=== PATIENT | female | born 1990 | race Caucasian/White ===

== ENCOUNTER 2018-05-03 19:38 | Emergency (ER) | payer BC ==
[2018-05-03 19:50] VITALS: RESP 18
--- NOTE | 2018-05-03 20:33 | ED ---
General Adult HPI - General Chief complaint: Upper Respiratory Infection Stated complaint: SOB/cough Time Seen by Provider: 05/03/18 19:51 Source: patient Mode of arrival: ambulatory Limitations: no limitations - History of Present Illness Initial comments: 27-year-old female presents to the emergency determine for a chief complaint of cough times one week. Patient states the cough is productive and she is coughing up mucus. Patient states she has also been coughing up dime sized amounts of blood 1-2 times per day. Patient has been taking ALLERGY medications for this. Patient also complains of a sore throat. Patient denies nasal congestion. Patient denies fever or chills at home. Patient denies a history of asthma but states she does smoke. Patient has no other complaints at this time including shortness of breath, chest pain, abdominal pain, nausea or vomiting, headache, or visual changes. - Related Data Home Medications Medication Instructions Recorded Confirmed Acetaminophen [Tylenol Extra 1,000 mg PO Q6H PRN 05/03/18 05/03/18 Strength] Cetirizine HCl [Zyrtec] 10 mg PO DAILY 05/03/18 05/03/18 Previous Rx's Medication Instructions Recorded Albuterol Inhaler [Ventolin Hfa 1 - 2 puff INHALATION Q6HR PRN #1 05/03/18 Inhaler] inhaler guaiFENesin [Mucinex] 600 mg PO Q12H #20 tab.er.12h 05/03/18 predniSONE 50 mg PO DAILY #5 tablet 05/03/18 Allergies Allergy/AdvReac Type Severity Reaction Status Date / Time No Known Allergies Allergy Verified 05/03/18 20:23 Review of Systems ROS Statement: Those systems with pertinent positive or pertinent negative responses have been documented in the HPI. ROS Other: All systems not noted in ROS Statement are negative. Past Medical History Past Medical History: No Reported History History of Any Multi-Drug Resistant Organisms: None Reported Past Surgical History: No Surgical Hx Reported Past Psychological History: Depression Smoking Status: Current every day smoker Past Alcohol Use History: Rare Past Drug Use History: None Reported General Exam Limitations: no limitations General appearance: alert, in no apparent distress Head exam: Present: atraumatic, normocephalic, normal inspection Eye exam: Present: normal appearance, PERRL, EOMI. Absent: scleral icterus, conjunctival injection, periorbital swelling ENT exam: Present: normal exam, normal oropharynx (erythematous. uvula midline. no tonsillar exudated. no signs of peritonsillar abscess.), mucous membranes moist, TM's normal bilaterally, normal external ear exam Neck exam: Present: normal inspection, full ROM. Absent: tenderness, meningismus, lymphadenopathy Respiratory exam: Present: normal lung sounds bilaterally. Absent: respiratory distress, wheezes, rales, rhonchi, stridor Cardiovascular Exam: Present: regular rate, normal rhythm, normal heart sounds. Absent: systolic murmur, diastolic murmur, rubs, gallop, clicks Course Vital Signs 05/03/18 19:45 Temperature 98.4 F Pulse Rate 73 Respiratory 18 Rate Blood Pressure 103/76 O2 Sat by Pulse 99 Oximetry Medical Decision Making - Medical Decision Making 27-year-old female presents to the emergency determine for chief complaint of cough times one week. Patient states she is coughing up mucus and then sized amount of blood once or twice a day. Patient denies history of asthma. Patient is a smoker. Vitals within normal limits in the emergency department. Patient is afebrile at 98.4F. Pulse ox 99% on room air. Lungs are clear to auscultation bilaterally. No wheezing noted. Chest x-ray shows no acute process. Pleural spaces are negative. Lungs are clear. Patient likely has a bronchitis. She will be given an inhaler as well as steroids. She will also take Mucinex. She will follow up with primary care in 1-2 days. She'll return to the emergency Department if she has any worsening symptoms. - Lab Data Lab Results 05/03/18 Range/Units 20:15 Group A Strep Rapid Negative (Negative) Disposition Clinical Impression: Upper respiratory infection Disposition: HOME SELF-CARE Condition: Good Instructions: Upper Respiratory Infection (ED) Additional Instructions: Please take steroids, inhaler, and mucinex as directed. Try to refrain from smoking. Please follow-up with primary care in 1-2 days. Return to the emergency department if you have any worsening symptoms. Prescriptions: Albuterol Inhaler [Ventolin Hfa Inhaler] 1 - 2 puff INHALATION Q6HR PRN #1 inhaler PRN Reason: Shortness Of Breath guaiFENesin [Mucinex] 600 mg PO Q12H #20 tab.er.12h predniSONE 50 mg PO DAILY #5 tablet Is patient prescribed a controlled substance at d/c from ED?: No Referrals: Brennen Kimball MD [STAFF PHYSICIAN] - 1-2 days Time of Disposition: 21:50
[2018-05-03] MEDS ORDERED: diphenhydrAMINE 50 MG CAP PO STA (21:06)
--- NOTE | 2018-05-03 21:26 | XR ---
EXAMINATION: XR chest 2V DATE AND TIME: 05/03/2018 8:34 PM ORDERING PROVIDER: Servando Medley CLINICAL INDICATION: Pain TECHNIQUE: PA and lateral COMPARISON: None. DESCRIPTION: The lungs are clear. The pleural spaces are negative. The cardiac silhouette is not enlarged. The mediastinal and pleural silhouettes are unremarkable. The skeletal structures are intact without focal findings. The soft tissues are unremarkable. IMPRESSION: NO ACUTE PROCESS.
[2018-05-03 22:08] VITALS: BP 109/55; PULSE 66; TEMP 98
== END 2018-05-03 22:06 | disposition home or self-care (01) ==
LOC: EC 19:38
DX: J06.9 Acute upper respiratory infection, unspecified (principal); F17.200 Nicotine dependence, unspecified, uncomplicated; Z79.899 Other long term (current) drug therapy
CPT/HCPCS: 71046; 87081; 87430; 99283

== ENCOUNTER 2018-05-27 15:55 | Emergency (ER) | payer BC ==
[2018-05-27] MEDS ORDERED: methylPREDNISolone SOD SUCCI 125 MG/2 ML VIAL IV STA (16:25)
[2018-05-27] MEDS ORDERED: ALBUTEROL NEBULIZED 2.5 MG/3 ML INHALATION STA (16:25)
[2018-05-27] MEDS ORDERED: FAMOTIDINE 20 MG/2 ML VIAL IV STA (16:25)
--- NOTE | 2018-05-27 16:34 | ED ---
Skin/Abscess/FB HPI - General Chief complaint: Skin/Abscess/Foreign Body Stated complaint: Bee Sting/SOB Time Seen by Provider: 05/27/18 16:22 Source: patient, RN notes reviewed Mode of arrival: ambulatory Limitations: no limitations - History of Present Illness Initial comments: This is a 27-year-old female presents emergency Department chief complaint of bee sting, shortness of breath. Patient states she was stung by a bee around 11 :30 AM today. Patient states that she started feeling slightly tingly and felt some chest tightness around 3:30. Patient states that she did take Benadryl at that time but still feels slightly off to start her usual self. Patient denies any throat pain, throat swelling or difficulty swallowing. Patient states that she is trying to find her inhaler to see if that would help but she could not find it. She denies any rashes. She states that she's never been stung by a bee in the past. - Related Data Home Medications Medication Instructions Recorded Confirmed Acetaminophen [Tylenol Extra 1,000 mg PO Q6H PRN 05/03/18 05/03/18 Strength] Cetirizine HCl [Zyrtec] 10 mg PO DAILY 05/03/18 05/03/18 Previous Rx's Medication Instructions Recorded Albuterol Inhaler [Ventolin Hfa 1 - 2 puff INHALATION Q6HR PRN #1 05/03/18 Inhaler] inhaler guaiFENesin [Mucinex] 600 mg PO Q12H #20 tab.er.12h 05/03/18 predniSONE 50 mg PO DAILY #5 tablet 05/03/18 Allergies Allergy/AdvReac Type Severity Reaction Status Date / Time bee venom protein (honey bee) Allergy Dyspnea Verified 05/27/18 16:15 Review of Systems ROS Statement: Those systems with pertinent positive or pertinent negative responses have been documented in the HPI. ROS Other: All systems not noted in ROS Statement are negative. Past Medical History Past Medical History: Asthma History of Any Multi-Drug Resistant Organisms: None Reported Past Surgical History: No Surgical Hx Reported Past Psychological History: Depression Smoking Status: Current every day smoker Past Alcohol Use History: Rare Past Drug Use History: None Reported General Exam Limitations: no limitations General appearance: alert, in no apparent distress Head exam: Present: atraumatic, normocephalic, normal inspection Eye exam: Present: normal appearance, PERRL, EOMI. Absent: scleral icterus, conjunctival injection, periorbital swelling ENT exam: Present: normal exam, normal oropharynx, mucous membranes moist, TM's normal bilaterally, normal external ear exam Neck exam: Present: normal inspection. Absent: tenderness, meningismus, lymphadenopathy Respiratory exam: Present: normal lung sounds bilaterally. Absent: respiratory distress, wheezes, rales, rhonchi, stridor Cardiovascular Exam: Present: regular rate, normal rhythm, normal heart sounds. Absent: systolic murmur, diastolic murmur, rubs, gallop, clicks Skin exam: Present: warm, dry, intact, normal color. Absent: rash Course Vital Signs 05/27/18 05/27/18 05/27/18 16:13 16:57 17:04 Temperature 98.3 F Pulse Rate 66 68 Respiratory 19 18 Rate Blood Pressure 105/70 O2 Sat by Pulse 100 Oximetry 05/27/18 17:17 Temperature Pulse Rate 72 Respiratory Rate Blood Pressure O2 Sat by Pulse Oximetry - Reevaluation(s) Reevaluation #1: 05/27/18 17:37 Patient was reevaluated states that she is currently symptom-free. She has been here almost 2 hours and has had no worsening symptoms. Patient will be discharged advised to continue on Benadryl. Disposition Clinical Impression: Allergic reaction to bee sting Disposition: HOME SELF-CARE Condition: Stable Instructions: Insect Bite or Sting (ED) Additional Instructions: Please return to the Emergency Department if symptoms worsen or any other concerns. Is patient prescribed a controlled substance at d/c from ED?: No Referrals: None,Stated [Primary Care Provider] - 1-2 days Time of Disposition: 17:38
[2018-05-27 18:04] VITALS: BP 115/70; PULSE 97; RESP 16; TEMP 97.6
== END 2018-05-27 17:55 | disposition home or self-care (01) ==
LOC: EC 15:55
DX: T63.441A Toxic effect of venom of bees, accidental (unintentional), initial encounter (principal); F17.200 Nicotine dependence, unspecified, uncomplicated; Z79.899 Other long term (current) drug therapy; Z91.030 Bee allergy status
CPT/HCPCS: 94640; 99284; 96374; 96375; J2930

== ENCOUNTER 2018-08-08 20:29 | Emergency (ER) | payer BC ==
[2018-08-08 20:44] VITALS: BP 129/59; PULSE 87; RESP 18; TEMP 99
--- NOTE | 2018-08-08 21:37 | ED ---
Abdominal Pain HPI - General Chief Complaint: Abdominal Pain Stated Complaint: Female Time Seen by Provider: 08/08/18 20:46 Source: patient, RN notes reviewed Mode of arrival: ambulatory Limitations: no limitations - History of Present Illness Initial Comments: This is a 27-year-old female who presents to the emergency department with chief complaint of low abdominal and back cramping. Patient states that she has been having cramping for approximately 3 weeks now. She states she is concerned because she had an IUD placed 1 year ago and cannot feel the strings. She states that she had normal periods when she first had the IUD but has not had a period for a while now. She reports painful sexual intercourse for the first time. She denies any fevers or chills, nausea or vomiting, diarrhea. She states she has no medical issues and takes no oral medications. She denies dysuria or hematuria but reports increased urinary frequency. - Related Data Home Medications Medication Instructions Recorded Confirmed Albuterol Inhaler [Ventolin Hfa 1 - 2 puff INHALATION RT-Q6H PRN 08/08/18 Inhaler] Allergies Allergy/AdvReac Type Severity Reaction Status Date / Time bee venom protein (honey bee) Allergy Dyspnea Verified 08/08/18 21:32 Review of Systems ROS Statement: Those systems with pertinent positive or pertinent negative responses have been documented in the HPI. ROS Other: All systems not noted in ROS Statement are negative. Past Medical History Past Medical History: Asthma History of Any Multi-Drug Resistant Organisms: None Reported Past Surgical History: No Surgical Hx Reported Past Psychological History: Depression Smoking Status: Current some day smoker Past Alcohol Use History: None Reported Past Drug Use History: None Reported General Exam - General Exam Comments Initial Comments: General: Awake and alert, well-developed; in no apparent distress. Does not appear acutely ill. HEENT: Head atraumatic, normocephalic. Pupils are equal, round and reactive to light. Extraocular movements intact. Oropharynx moist without erythema or exudate. Neck: Supple. Normal ROM. Cardiovascular: Regular rate and rhythm. No murmurs, rubs or gallops. Chest symmetrical. Respiratory: Lungs clear to auscultation bilaterally. No wheezes, rales or rhonchi. Normal respiratory effort with no use of accessory muscles. Abdomen: Soft, thin, non-tender, non-distended. No rigidity, rebound or guarding. Normal bowel sounds in all 4 quadrants. No CVA tenderness bilaterally. Musculoskeletal: Normal ROM, no tenderness bilateral upper and lower extremities. Skin: [place], warm and dry without rashes or lesions. Neurological: Alert and oriented x3. CN II-XII grossly intact. Speech is fluent and answers are appropriate. No focal neuro deficits. Psychiatric: Normal mood and affect. No overt signs of depression or anxiety noted. Limitations: no limitations Course Vital Signs 08/08/18 20:39 Temperature 99.0 F Pulse Rate 87 Respiratory 18 Rate Blood Pressure 129/59 O2 Sat by Pulse 98 Oximetry Medical Decision Making - Medical Decision Making This is a 27-year-old female presents to the emergency department with chief complaint of lower abdominal and low back cramping 3 weeks. Patient states she is concerned that her IUD is out of place. On physical examination, patient appears well. CBC, CMP and UA revealed no significant abnormalities. Transvaginal ultrasound reveals that the IUD is in good position. No evidence of ovarian torsion. Case was discussed with attending physician, Dr. Coreas. Patient will be discharged home at this time. Recommended following up with her primary care provider. She is in agreement with plan and voices understanding. All questions were answered. - Lab Data Result diagrams: 08/08/18 21:20 08/08/18 21:20 Lab Results 08/08/18 08/08/18 08/08/18 Range/Units 21:20 21:20 21:20 WBC 4.6 (3.8-10.6) k/uL RBC 4.33 (3.80-5.40) m/uL Hgb 13.8 (11.4-16.0) gm/dL Hct 39.1 (34.0-46.0) % MCV 90.3 (80.0-100.0) fL MCH 31.9 (25.0-35.0) pg MCHC 35.3 (31.0-37.0) g/dL RDW 12.2 (11.5-15.5) % Plt Count 61 L (150-450) k/uL Neutrophils % (Manual) 23 % Band Neutrophils % 1 % Lymphocytes % (Manual) 70 % Monocytes % (Manual) 3 % Eosinophils % (Manual) 3 % Neutrophils # (Manual) 1.10 L (1.3-7.7) k/uL Lymphocytes # (Manual) 3.22 (1.0-4.8) k/uL Monocytes # (Manual) 0.14 (0-1.0) k/uL Eosinophils # (Manual) 0.14 (0-0.7) k/uL Nucleated RBCs 0 (0-0) /100 WBC Manual Slide Review Performed Sodium 141 (137-145) mmol/L Potassium 4.0 (3.5-5.1) mmol/L Chloride 104 (98-107) mmol/L Carbon Dioxide 27 (22-30) mmol/L Anion Gap 10 mmol/L BUN 6 L (7-17) mg/dL Creatinine 0.56 (0.52-1.04) mg/dL Est GFR (CKD-EPI)AfAm >90 (>60 ml/min/1.73 sqM) Est GFR (CKD-EPI)NonAf >90 (>60 ml/min/1.73 sqM) Glucose 87 (74-99) mg/dL Calcium 10.3 H (8.4-10.2) mg/dL Total Bilirubin 0.3 (0.2-1.3) mg/dL AST 21 (14-36) U/L ALT 20 (9-52) U/L Alkaline Phosphatase 50 (38-126) U/L Total Protein 8.5 H (6.3-8.2) g/dL Albumin 5.2 H (3.5-5.0) g/dL Amylase 72 (30-110) U/L Lipase 66 (23-300) U/L Urine Color Urine Appearance (Clear) Urine pH (5.0-8.0) Ur Specific [place] (1.001-1.035) Urine Protein (Negative) Urine Glucose (UA) (Negative) Urine Ketones (Negative) Urine Blood (Negative) Urine Nitrite (Negative) Urine Bilirubin (Negative) Urine Urobilinogen (<2.0) mg/dL Ur Leukocyte Esterase (Negative) Urine RBC (0-5) /hpf Urine WBC (0-5) /hpf Ur Squamous Epith Cells (0-4) /hpf Urine HCG, Qual Not Detected (Not Detectd) 08/08/18 Range/Units 21:20 WBC (3.8-10.6) k/uL RBC (3.80-5.40) m/uL Hgb (11.4-16.0) gm/dL Hct (34.0-46.0) % MCV (80.0-100.0) fL MCH (25.0-35.0) pg MCHC (31.0-37.0) g/dL RDW (11.5-15.5) % Plt Count (150-450) k/uL Neutrophils % (Manual) % Band Neutrophils % % Lymphocytes % (Manual) % Monocytes % (Manual) % Eosinophils % (Manual) % Neutrophils # (Manual) (1.3-7.7) k/uL Lymphocytes # (Manual) (1.0-4.8) k/uL Monocytes # (Manual) (0-1.0) k/uL Eosinophils # (Manual) (0-0.7) k/uL Nucleated RBCs (0-0) /100 WBC Manual Slide Review Sodium (137-145) mmol/L Potassium (3.5-5.1) mmol/L Chloride (98-107) mmol/L Carbon Dioxide (22-30) mmol/L Anion Gap mmol/L BUN (7-17) mg/dL Creatinine (0.52-1.04) mg/dL Est GFR (CKD-EPI)AfAm (>60 ml/min/1.73 sqM) Est GFR (CKD-EPI)NonAf (>60 ml/min/1.73 sqM) Glucose (74-99) mg/dL Calcium (8.4-10.2) mg/dL Total Bilirubin (0.2-1.3) mg/dL AST (14-36) U/L ALT (9-52) U/L Alkaline Phosphatase (38-126) U/L Total Protein (6.3-8.2) g/dL Albumin (3.5-5.0) g/dL Amylase (30-110) U/L Lipase (23-300) U/L Urine Color Colorless Urine Appearance Clear (Clear) Urine pH 6.5 (5.0-8.0) Ur Specific [place] 1.003 (1.001-1.035) Urine Protein Negative (Negative) Urine Glucose (UA) Negative (Negative) Urine Ketones Negative (Negative) Urine Blood Negative (Negative) Urine Nitrite Negative (Negative) Urine Bilirubin Negative (Negative) Urine Urobilinogen <2.0 (<2.0) mg/dL Ur Leukocyte Esterase Trace H (Negative) Urine RBC <1 (0-5) /hpf Urine WBC 3 (0-5) /hpf Ur Squamous Epith Cells 3 (0-4) /hpf Urine HCG, Qual (Not Detectd) - Radiology Data Radiology results: report reviewed Ultrasound impression: IUD appears in good position. No evidence of ovarian torsion. Disposition Clinical Impression: Abdominal pain Disposition: HOME SELF-CARE Condition: Good Instructions: Abdominal Pain (ED) Additional Instructions: Please follow up with primary care provider within 1-2 days. Return to emergency department if symptoms should worsen or any concerns arise. Is patient prescribed a controlled substance at d/c from ED?: No Referrals: None,Stated [Primary Care Provider] - 1-2 days Amari Mcclure MD [STAFF PHYSICIAN] - 1-2 days Time of Disposition: 23:20
[2018-08-08 21:38] LABS: Appearance,Urine Clear (Clear); Bilirubin,Urine Negative (Negative); Blood,Urine Negative (Negative); Color,Urine Colorless; Glucose,Urine (UA) Negative (Negative); Ketones,Urine Negative (Negative); Leukocyte Esterase,Urine Trace (Negative); Nitrite,Urine Negative (Negative); PH, Urine 6.5 (5.0-8.0); Protein,Urine Negative (Negative); RBC,Urine <1 /hpf (0-5); Specific Gravity,Urine 1.003 (1.001-1.035); Squamous Epithelial Cell,Urine 3 /hpf (0-4); Urobilinogen,Urine <2.0 mg/dL (<2.0); WBC,Urine 3 /hpf (0-5)
[2018-08-08 21:50] LABS: ALT 20 U/L (9-52); AST 21 U/L (14-36); Albumin 5.2 g/dL (3.5-5.0); Alkaline Phosphatase 50 U/L (38-126); Amylase 72 U/L (30-110); Anion Gap 10 mmol/L; Blood Urea Nitrogen 6 mg/dL (7-17); Calcium 10.3 mg/dL (8.4-10.2); Carbon Dioxide 27 mmol/L (22-30); Chloride 104 mmol/L (98-107); Glucose 87 mg/dL (74-99); Lipase 66 U/L (23-300); Sodium 141 mmol/L (137-145); Total Bilirubin 0.3 mg/dL (0.2-1.3); Total Protein 8.5 g/dL (6.3-8.2)
[2018-08-08 22:06] LABS: HCT 39.1 % (34.0-46.0); HGB 13.8 gm/dL (11.4-16.0); MCH 31.9 pg (25.0-35.0); MCHC 35.3 g/dL (31.0-37.0); MCV 90.3 fL (80.0-100.0); RBC 4.33 m/uL (3.80-5.40); RDW 12.2 % (11.5-15.5); WBC 4.6 k/uL (3.8-10.6)
[2018-08-08 22:16] LABS: Platelet Count 61 k/uL (150-450)
[2018-08-08 22:19] LABS: Band Neutrophils % 1 %; Eosinophils # (M) 0.14 k/uL (0-0.7); Lymphocytes # (M) 3.22 k/uL (1.0-4.8); Monocytes # (M) 0.14 k/uL (0-1.0); Neutrophils % (M) 23 %; Nucleated Red Blood Cells 0 /100 WBC (0-0); Total Cells Counted 100
--- NOTE | 2018-08-08 22:53 | US ---
EXAMINATION TYPE: US transvaginal DATE OF EXAM: 08/08/2018 COMPARISON: NONE CLINICAL HISTORY: pelvic cramping. Cramping check IUD placement TECHNIQUE: Transvaginal (TV). EXAM MEASUREMENTS: Uterus: 6.9 x 3.3 x 4.6 cm Endometrial Stripe: Not well visualized due to shadowing from IUD. Right Ovary: 2.9 x 2.1 x 2.3 cm Left Ovary: 2.4 x 1.8 x 2.0 cm 1. Uterus: Anteverted wnl 2. Endometrium: IUD appears within endometrial lining. 3. Right Ovary: wnl 4. Left Ovary: wnl Spectral, color and waveform doppler imaging shows good arterial and venous flow within the ovaries ; there is no evidence for ovarian torsion. 5. Bilateral Adnexa: wnl 6. Posterior cul-de-sac: wnl IMPRESSION: IUD appears in good position. No evidence of ovarian torsion.
== END 2018-08-08 23:36 | disposition home or self-care (01) ==
LOC: EC 20:29
DX: R10.30 Lower abdominal pain, unspecified (principal); M54.5 Low back pain; R35.0 Frequency of micturition; J45.909 Unspecified asthma, uncomplicated; F17.200 Nicotine dependence, unspecified, uncomplicated; Z91.018 Allergy to other foods; Z97.5 Presence of (intrauterine) contraceptive device
CPT/HCPCS: 36415; 76830; 80053; 81001; 81025; 82150; 83690; 85025; 93975; 99284

== ENCOUNTER 2019-08-27 22:09 | Emergency (ER) | payer BC ==
[2019-08-27] MEDS ORDERED: CEPHALEXIN 500 MG CAP PO STA (22:35)
[2019-08-27] MEDS ORDERED: CEPHALEXIN 500MG STARTER PACK 4 CAP BTL PO STA (22:35)
[2019-08-27] MEDS ORDERED: SULFAMETHOX-TMP 800-160MG 1 EACH TAB PO STA (22:35)
[2019-08-27] MEDS ORDERED: SULFAMETH-TMP DS STARTER PACK 2 TAB BTL PO STA (22:35)
--- NOTE | 2019-08-27 23:16 | XR ---
EXAMINATION TYPE: XR elbow complete RT DATE OF EXAM: 08/27/2019 COMPARISON: NONE HISTORY: Elbow infection TECHNIQUE: 3 views FINDINGS: There is some soft tissue swelling on the posterior aspect of the elbow. I see no fracture nor dislocation. There is no sign of joint effusion. Joint spaces are normal. IMPRESSION: Soft tissue swelling. No fracture.
--- NOTE | 2019-08-27 23:32 | ED ---
General Adult HPI - General Chief complaint: Skin/Abscess/Foreign Body Stated complaint: arm infection Time Seen by Provider: 08/27/19 22:23 Source: patient, RN notes reviewed, old records reviewed Mode of arrival: ambulatory Limitations: no limitations - History of Present Illness Initial comments: 29-year-old female patient with no pertinent past history presents ED chief complaint of redness to right elbow. Patient reports that she noticed that earlier this morning. Patient reports that has gotten slightly more red throughout the day. Patient reports that it causes a small amount discomfort. However she did present to ER after bowling 3 games. Denies any other medical history. Denies other complaints. Systemic: Pt denies fatigue, fever/chills, rash. Pt denies weakness, night sweats, weight loss. Neuro: Pt denies headache, visual disturbances, syncope or pre-syncope. HEENT: Pt denies ocular discharge or irritation, otalgia, rhinorrhea, pharyngitis or notable lymphadenopathy. Cardiopulmonary: Pt denies chest pain, SOB, heart palpitations, dyspnea on exertion. Abdominal/GI: Pt denies abdominal pain, n/v/d. : Pt denies dysuria, burning w/ urination, frequency/urgency. Denies new onset urinary or bowel incontinence. MSK: Pt denies myalgia, loss of strength or function in extremities. Neuro: Pt denies new onset weakness, paresthesias. - Related Data Home Medications Medication Instructions Recorded Confirmed Albuterol Inhaler [Ventolin Hfa 1 - 2 puff INHALATION RT-Q6H PRN 08/08/18 08/08/18 Inhaler] Previous Rx's Medication Instructions Recorded Cephalexin [Keflex] 500 mg PO Q6HR 10 Days #40 cap 08/27/19 Sulfamethox-Tmp 800-160Mg [Bactrim 1 tab PO Q12HR #20 tab 08/27/19 DS 800-160 mg] Allergies Allergy/AdvReac Type Severity Reaction Status Date / Time bee venom protein (honey bee) Allergy Dyspnea Verified 08/27/19 22:21 Review of Systems ROS Statement: Those systems with pertinent positive or pertinent negative responses have been documented in the HPI. ROS Other: All systems not noted in ROS Statement are negative. Past Medical History Past Medical History: Asthma History of Any Multi-Drug Resistant Organisms: None Reported Past Surgical History: No Surgical Hx Reported Past Psychological History: Depression Smoking Status: Current some day smoker Past Alcohol Use History: None Reported Past Drug Use History: None Reported General Exam - General Exam Comments Initial Comments: Constitutional: NAD, AOX3, Pt has pleasant affect. HEENT: NC/AT, trachea midline, neck supple, no lymphadenopathy. Posterior pharynx non erythematous, without exudates. External ears appear normal, without discharge. Mucous membranes moist. Eyes PERRLA, EOM intact. There is no scleral icterus. No pallor noted. Cardiopulmonary: RRR, no murmurs, rubs or gallops, no JVD noted. Lungs CTAB in anterior and posterior mehta. No peripheral edema. Abdominal exam: Abdomen soft and non-distended. Abdomen non-tender to palpation in all 4 quadrants. Bowel sounds active in LLQ. No hepatosplenomegaly. No ecchymosis Neuro: CN II-XII grossly intact. No nuchal rigidity. No [place] eyes, no saavedra sign, no hemotympanum. No cervical spinal tenderness. MSK: Approximately 4 x 4 centimeters erythema to lateral aspect of right elbow. No fluctuance. Full active range of motion. No discharge. Mildly tender to palpation. No posterior calf tenderness bilaterally, homans sign negative bilaterally. Posterior tibialis and radial pulse +2 bilaterally. Sensation in tact in upper and lower extremities. Full active ROM in upper and lower extremities, 5/5 stregnth. Limitations: no limitations Course Vital Signs 08/27/19 22:17 Temperature 98.5 F Pulse Rate 68 Respiratory 18 Rate Blood Pressure 95/58 O2 Sat by Pulse 98 Oximetry Medical Decision Making - Medical Decision Making 29-year-old female patient with no pertinent past history presents ED chief complaint of redness to right elbow. Patient reports that she noticed that earlier this morning. Patient reports that has gotten slightly more red throughout the day. Patient reports that it causes a small amount discomfort. However she did present to ER after bowling 3 games. Denies any other medical history. Denies other complaints. Patient vital signs stable, afebrile. Physical exam displayed: Approximately 4 x 4 centimeters erythema to lateral aspect of right elbow. No fluctuance. Full active range of motion. No discharge. Mildly tender to palpation. Plain films displayed soft tissue swelling. Patient will be discharged with Bactrim and Keflex for cellulitis. Will be given strict return precautions and primary care follow-up. Case discussed with Dr. Gilman. - Lab Data Lab Results 08/27/19 Range/Units 22:30 Urine HCG, Qual Not Detected (Not Detectd) Disposition Clinical Impression: Cellulitis Disposition: HOME SELF-CARE Condition: Stable Instructions (If sedation given, give patient instructions): Cellulitis (ED) Additional Instructions: Patient to adhere to previously discussed treatment plan and will take medication(s) as directed. Patient to follow up with PCP in 1-2 days. Patient to return to ED if symptoms do not improve. Follow-up with primary care provider tomorrow. Return to ER if redness or pain gets worse. Or if condition worsens in any way. Prescriptions: Sulfamethox-Tmp 800-160Mg [Bactrim DS 800-160 mg] 1 tab PO Q12HR #20 tab Cephalexin [Keflex] 500 mg PO Q6HR 10 Days #40 cap Is patient prescribed a controlled substance at d/c from ED?: No Referrals: Dario Crockett MD [Primary Care Provider] - 1-2 days
[2019-08-27 23:52] VITALS: BP 95/64; PULSE 67; RESP 20; TEMP 97.8
== END 2019-08-27 23:51 | disposition home or self-care (01) ==
LOC: EC 22:09
DX: L03.113 Cellulitis of right upper limb (principal); J45.909 Unspecified asthma, uncomplicated; F17.200 Nicotine dependence, unspecified, uncomplicated; Z79.51 Long term (current) use of inhaled steroids; Z91.030 Bee allergy status
CPT/HCPCS: 81025; 99284

== ENCOUNTER → 2019-09-04 | Outpatient (CLI) | payer BC ==
--- NOTE | 2019-09-04 18:19 | US ---
EXAMINATION TYPE: US venous doppler duplex UE RT DATE OF EXAM: 09/04/2019 COMPARISON: NONE CLINICAL HISTORY: M79.601 R ARM PAIN,R23.8 OTHER SKIN CHANGES. Pain right medial elbow area x 1 week. No hx of DVT. Patient does not take blood thinners. SIDE PERFORMED: Right Right Arm: Right cephalic vein is not seen at this time. No evidence of DVT in veins imaged in right arm at this time. Hypoechoic area with hyperechoic center and vascularity seen in right axilla measurin.2 x 1.2 x 1 .0 cm. Hypoechoic area with hyperechoic center and vascularity seen at medial right elbow patient's area of concern measurin.0 x 0.7 x 0.4 cm. IMPRESSION: There are two lymph nodes demonstrated. No evidence of deep venous thrombosis in the right arm.
== END | disposition home or self-care (01) ==
LOC: RADUSWWP 16:51
PROVIDERS: ATTEND Family Medicine
DX: R59.0 Localized enlarged lymph nodes (principal); M79.89 Other specified soft tissue disorders; R23.8 Other skin changes

== ENCOUNTER 2019-09-11 17:04 | Emergency (ER) | payer BC ==
[2019-09-11 17:16] VITALS: RESP 18
--- NOTE | 2019-09-11 18:13 | ED ---
General Adult HPI - General Chief complaint: Skin/Abscess/Foreign Body Stated complaint: Shoulder/wrist pain Time Seen by Provider: 09/11/19 18:01 Source: patient Mode of arrival: ambulatory Limitations: no limitations - History of Present Illness Initial comments: Patient is a 29-year-old female presenting to the emergency room with a chief complaint of a skin infection. Patient reports she was in the ED about 2 weeks ago with a similar skin infection on the right elbow. Patient reports she was diagnosed with septic cellulitis and was discharged with Keflex and Bactrim. Patient reports few days after she went to her primary care who sent the patient back to the ED to rule out an upper extremity blood clot from the same region. Patient was advised to continue taking antibiotics. Patient reports the cellulitis of the elbow has since resolved however today she appears to have another lesion on the anterior aspect of the right distal forearm. Patient is also reporting a similar lesion on her left shoulder that also began today. Patient denies any drainage from the area. Patient does report tenderness. Patient reports chills but denies never actually taken her temperature. Patient denies any nausea or vomiting or diarrhea. - Related Data Home Medications Medication Instructions Recorded Confirmed Albuterol Inhaler [Ventolin Hfa 1 - 2 puff INHALATION RT-Q6H PRN 08/08/18 08/08/18 Inhaler] Previous Rx's Medication Instructions Recorded Cephalexin [Keflex] 500 mg PO Q6HR 10 Days #40 cap 08/27/19 Sulfamethox-Tmp 800-160Mg [Bactrim 1 tab PO Q12HR #20 tab 08/27/19 DS 800-160 mg] Doxycycline Monohydrate [Monodox] 100 mg PO Q12HR #20 cap 09/11/19 Allergies Allergy/AdvReac Type Severity Reaction Status Date / Time bee venom protein (honey bee) Allergy Dyspnea Verified 09/11/19 17:11 Review of Systems ROS Statement: Those systems with pertinent positive or pertinent negative responses have been documented in the HPI. ROS Other: All systems not noted in ROS Statement are negative. Past Medical History Past Medical History: Asthma History of Any Multi-Drug Resistant Organisms: None Reported Past Surgical History: No Surgical Hx Reported Past Psychological History: Depression Smoking Status: Current some day smoker Past Alcohol Use History: None Reported Past Drug Use History: None Reported General Exam Limitations: no limitations General appearance: alert, in no apparent distress Head exam: Present: atraumatic, normocephalic, normal inspection Eye exam: Present: normal appearance, PERRL, EOMI Pupils: Present: normal accommodation ENT exam: Present: normal exam, normal oropharynx, mucous membranes moist, TM's normal bilaterally, normal external ear exam Neck exam: Present: normal inspection, full ROM Respiratory exam: Present: normal lung sounds bilaterally Cardiovascular Exam: Present: regular rate, normal rhythm, normal heart sounds Extremities exam: Present: normal inspection, full ROM Back exam: Present: normal inspection, full ROM Neurological exam: Present: alert, oriented X3 Psychiatric exam: Present: normal affect, normal mood Skin exam: Present: warm, dry, intact, normal color, rash (Erythematous area measuring 2 cm in diameter on the anterior aspect of the right distal forearm. No induration or fluctuance. No discharge. Similar lesion on the left shoulder.) Course Vital Signs 09/11/19 17:11 Temperature 97.8 F Pulse Rate 89 Respiratory 18 Rate Blood Pressure 119/63 O2 Sat by Pulse 98 Oximetry Medical Decision Making - Medical Decision Making Patient is a 29-year-old female presenting to the emergency department with chief complaint of a skin infection. Based the physical examination is appears to be cellulitis. No signs of induration or fluctuance. Patient advised to discontinue taking the Keflex and the Bactrim. Patient will be discharged with doxycycline. Patient advised to follow-up with a executive kitchen manager. Strict return parameters were thoroughly discussed with patient is understanding and agreeable. Vital signs stable. No suspicion of sepsis. case discussed with physician Disposition Clinical Impression: Cellulitis of forearm, right Disposition: HOME SELF-CARE Condition: Stable Instructions (If sedation given, give patient instructions): Cellulitis (DC) Additional Instructions: Please take prescribed medication as directed. Alternate between Tylenol and ibuprofen for pain control. Please return to emergency department if symptoms worsen. Please follow up with a executive kitchen manager. Prescriptions: Doxycycline Monohydrate [Monodox] 100 mg PO Q12HR #20 cap Is patient prescribed a controlled substance at d/c from ED?: No Referrals: Daroi Crockett MD [Primary Care Provider] - 1-2 days Frederick Aly MD [STAFF PHYSICIAN] - 1-2 days Time of Disposition: 18:58
[2019-09-11] MEDS ORDERED: DOXYCYCLINE 100 MG CAP PO STA (18:55)
[2019-09-11 19:13] VITALS: BP 104/65; PULSE 63; TEMP 98.9
== END 2019-09-11 19:11 | disposition home or self-care (01) ==
LOC: EC 17:04
DX: L03.113 Cellulitis of right upper limb (principal); M25.512 Pain in left shoulder; J45.909 Unspecified asthma, uncomplicated; F17.200 Nicotine dependence, unspecified, uncomplicated; Z79.899 Other long term (current) drug therapy; Z91.048 Other nonmedicinal substance allergy status
CPT/HCPCS: 99283

== ENCOUNTER → 2019-10-23 | Outpatient (CLI) | payer BC | END | disposition home or self-care (01) | LOC: LABWHC1 08:27 | PROVIDERS: ATTEND Obstetrics & Gynecology | DX: N91.2 Amenorrhea, unspecified (principal) | CPT/HCPCS: 36415; 84702 ==

== ENCOUNTER → 2019-10-26 | Outpatient (CLI) | payer BC | END | disposition home or self-care (01) | LOC: LABWHC1 08:37 | PROVIDERS: ATTEND Obstetrics & Gynecology | DX: N91.0 Primary amenorrhea (principal) | CPT/HCPCS: 36415; 84702 ==

== ENCOUNTER → 2019-11-20 | Outpatient (CLI) | payer BC | END | disposition home or self-care (01) | LOC: LABWHC1 14:11 | PROVIDERS: ATTEND Obstetrics & Gynecology | DX: N91.2 Amenorrhea, unspecified (principal) | CPT/HCPCS: 36415; 84702 ==

== ENCOUNTER → 2019-11-22 | Outpatient (CLI) | payer BC | END | disposition home or self-care (01) | LOC: LABWHC1 12:56 | PROVIDERS: ATTEND Obstetrics & Gynecology | DX: N91.2 Amenorrhea, unspecified (principal) | CPT/HCPCS: 36415; 84702 ==

== ENCOUNTER 2020-01-04 19:50 | Emergency (ER) | payer BC ==
[2020-01-04 20:23] VITALS: BP 104/71; PULSE 74; RESP 16; TEMP 98.1
[2020-01-04 20:38] LABS: Appearance,Urine Clear (Clear); Bilirubin,Urine Negative (Negative); Blood,Urine Negative (Negative); Color,Urine Light Yellow; Glucose,Urine (UA) Negative (Negative); Ketones,Urine Negative (Negative); Leukocyte Esterase,Urine Negative (Negative); Nitrite,Urine Negative (Negative); Protein,Urine Negative (Negative); Specific Gravity,Urine 1.011 (1.001-1.035); Urobilinogen,Urine <2.0 mg/dL (<2.0)
--- NOTE | 2020-01-04 22:10 | ED ---
General Adult HPI - General Chief complaint: Dizziness Stated complaint: Dizziness, Fever 10 Wks Time Seen by Provider: 01/04/20 21:28 Source: patient Mode of arrival: ambulatory Limitations: no limitations - History of Present Illness Initial comments: Cleopatra is a 29-year-old female who reports she is currently 10 weeks and she presents the ER today requesting COVID testing. 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 Patient denies any cough, sore throat or shortness of breath. - Related Data Home Medications Medication Instructions Recorded Confirmed Albuterol Inhaler [Ventolin Hfa 1 - 2 puff INHALATION RT-Q6H PRN 08/08/18 08/08/18 Inhaler] Previous Rx's Medication Instructions Recorded Cephalexin [Keflex] 500 mg PO Q6HR 10 Days #40 cap 08/27/19 Sulfamethox-Tmp 800-160Mg [Bactrim 1 tab PO Q12HR #20 tab 08/27/19 DS 800-160 mg] Doxycycline Monohydrate [Monodox] 100 mg PO Q12HR #20 cap 09/11/19 Allergies Allergy/AdvReac Type Severity Reaction Status Date / Time bee venom protein (honey bee) Allergy Dyspnea Verified 01/04/20 20:22 Review of Systems ROS Statement: Those systems with pertinent positive or pertinent negative responses have been documented in the HPI. ROS Other: All systems not noted in ROS Statement are negative. Past Medical History Past Medical History: Asthma History of Any Multi-Drug Resistant Organisms: None Reported Past Surgical History: No Surgical Hx Reported Past Psychological History: Depression Smoking Status: Current some day smoker Past Alcohol Use History: None Reported Past Drug Use History: None Reported General Exam - General Exam Comments Initial Comments: Physical Exam GENERAL: Patient is well-developed and well-nourished. Patient is nontoxic and well-hydrated and is in no distress. HENT: Normocephalic, Atraumatic. EYES: PERRL, EOMI PULMONARY: Unlabored respirations. CARDIOVASCULAR: RRR Warm and well perfused extremities ABDOMEN: Non-distended SKIN: No rashes or bruising : Deferred NEUROLOGIC: Alert and oriented Normal speech Normal gait MUSCULOSKELETAL: Moving all extremities with no apparent injury PSYCHIATRIC: No SI/HI Limitations: no limitations Course Vital Signs 01/04/20 20:20 Temperature 98.1 F Pulse Rate 74 Respiratory 16 Rate Blood Pressure 104/71 O2 Sat by Pulse 98 Oximetry Medical Decision Making - Medical Decision Making Patient was seen and evaluated history is obtained from patient 29-year-old female with a subjective fever no measurable fever no fever upon arrival Since daughter has had a fever and diarrhea however she has not had any symptoms Given the patient's daughter symptoms and we will swab for influenza A and B, considering that she is we will obtain a urine I did offer the patient IV access for fluid resuscitation given that she is feeling lightheaded however patient states she is just very thirsty and prefer to drink water at this time. resting comfortably remained afebrile and hemodynamically stable requested discharge home prior to influenza testing result. Urinalysis is negative for any signs of infection. - Lab Data Lab Results 01/04/20 01/04/20 Range/Units 20:24 22:43 Urine Color Light Yellow Urine Appearance Clear (Clear) Urine pH 6.0 (5.0-8.0) Ur Specific [place] 1.011 (1.001-1.035) Urine Protein Negative (Negative) Urine Glucose (UA) Negative (Negative) Urine Ketones Negative (Negative) Urine Blood Negative (Negative) Urine Nitrite Negative (Negative) Urine Bilirubin Negative (Negative) Urine Urobilinogen <2.0 (<2.0) mg/dL Ur Leukocyte Esterase Negative (Negative) Influenza Type A RNA Not Detected (Not Detectd) Influenza Type B (PCR) Not Detected (Not Detectd) Disposition Clinical Impression: Flu-like symptoms Disposition: HOME SELF-CARE Condition: Stable Additional Instructions: Follow up with your correctional supervisor in the next week for re-evaluation Is patient prescribed a controlled substance at d/c from ED?: No Referrals: None,Stated [Primary Care Provider] - 1-2 days
== END 2020-01-04 23:20 | disposition home or self-care (01) ==
LOC: EC 19:50
DX: O99.89 Other specified diseases and conditions complicating pregnancy, childbirth and the puerperium (principal); R68.89 Other general symptoms and signs; O99.511 Diseases of the respiratory system complicating pregnancy, first trimester; J45.909 Unspecified asthma, uncomplicated; O99.331 Smoking (tobacco) complicating pregnancy, first trimester; F17.200 Nicotine dependence, unspecified, uncomplicated; Z3A.10 10 weeks gestation of pregnancy; Z91.030 Bee allergy status
CPT/HCPCS: 81003; 87086; 87502; 99284

== ENCOUNTER 2020-04-29 13:13 | Outpatient (CLI) | payer BC ==
[2020-04-29 14:23] LABS: Amorphous Sediment,Urine Few /hpf; Appearance,Urine Turbid (Clear); Bacteria,Urine Rare /hpf; Bilirubin,Urine Negative (Negative); Blood,Urine Negative (Negative); Color,Urine Yellow; Glucose,Urine (UA) Negative (Negative); Ketones,Urine Negative (Negative); Leukocyte Esterase,Urine Small (Negative); Mucus,Urine Rare /hpf; Nitrite,Urine Negative (Negative); Protein,Urine Negative (Negative); RBC,Urine <1 /hpf (0-5); Specific Gravity,Urine 1.017 (1.001-1.035); Squamous Epithelial Cell,Urine 5 /hpf (0-4); Urobilinogen,Urine <2.0 mg/dL (<2.0); WBC,Urine 5 /hpf (0-5)
[2020-04-29 15:33] VITALS: BP 116/70; PULSE 88; RESP 16; TEMP 97.5
--- NOTE | 2020-04-30 16:39 | P.MSEPDOC ---
Presenting Problems - Arrival Data Date of Arrival on Unit: 04/29/20 Time of Arrival on Unit: 13:13 Mode of Transport: Ambulatory - Complaint OB-Reason for Admission/Chief Complaint: Acute Nausea/Vomiting, Other Comment: just dont feel well. "not peeing much" Medical History - Information : 3 Para: 1 Term: 0 : 1 Abortions: Spontaneous or Elective: 1 Number of Living Children: 1 - Gestational Age Gestational Age by ALEJANDRINA (wks/days): 27 Weeks and 1 Days - History Complications: Other Comment: previous pih, "not feeling well today" Review of Systems - Review of Systems Constitutional: No problems Breast: No problems ENT: No problems Cardiovascular: No problems Respiratory: No problems Gastrointestinal: No problems Genitourinary: No problems Musculoskeletal: No problems Neurological: No problems Skin: No problems Vital Signs - Temperature Temperature: 97.5 F Temperature Source: Temporal Artery Scan - Pulse Right Radial Pulse Rate: 88 Pulse Assessment Method: Automatic Cuff - Respirations Respiratory Rate: 16 Oxygen Delivery Method: Room Air O2 Sat by Pulse Oximetry: 98 - Blood Pressure Right Arm Blood Pressure: 116/70 Blood Pressure Mean: 85 Blood Pressure Source: Automatic Cuff Medical Screen Scoring (Pre) - Cervical Exam Dilation: Exam Deferred Effacement: Exam Deferred Membranes: Intact - Uterine Contractions Frequency: N/A Duration: N/A Intensity: N/A - Maternal Vital Signs Maternal Temperature: N/A Maternal Blood Pressure: N/A Signs of Preeclampsia: N/A, Nausea/Vomiting = 1 Maternal Respirations: N/A - Maternal Trauma Maternal Trauma: N/A - Assessment - Baby A Baseline FHR: 140 Heart Rate - NICHD Category: Category I (Normal) = 0 Position: N/A Station: N/A - Total Score - Baby A Total Score - Baby A: 1 - Total Score - Baby B Total Score - Baby B: 1 - Total Score - Baby C Total Score - Baby C: 1 - Level of Risk - Baby A Level of Risk - Baby A: Low (0-5) - Level of Risk - Baby B Level of Risk - Baby B: Low (0-5) - Level of Risk - Baby C Level of Risk - Baby C: Low (0-5) Physician Notification (Pre) - Physician Notified Physician Notified Date: 04/29/20 Physician Notified Time: 14:00 New Order Received: Yes - Notification Comment Comment: urinalysis, monitor then call with report. // urine ok, fht's 140's ,baby active. 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 to call office on wednesday or return sooner if not feeling well again Disposition - Disposition OB Disposition: Observe, Discharge to home, Written follow up instructions reviewed Discharge Date: 04/29/20 Discharge Time: 15:00 I agree with the RN Medical Screening Exam: Yes Risk & Benefit of care provided described in d/c instruction: Yes Diagnosis: RELATED CONDITIONS, UNSPECIFIED, SECOND TRIMESTER
== END 2020-04-29 15:00 | disposition home or self-care (01) ==
LOC: FBPOP 13:13
PROVIDERS: ATTEND Obstetrics & Gynecology
DX: O26.93 Pregnancy related conditions, unspecified, third trimester (principal); Z3A.27 27 weeks gestation of pregnancy
CPT/HCPCS: 81001; 99213

== ENCOUNTER 2020-05-11 19:45 | Outpatient (CLI) | payer BC ==
[2020-05-11 21:23] VITALS: BP 113/63; PULSE 86; RESP 18; TEMP 98.1
--- NOTE | 2020-05-12 13:18 | P.MSEPDOC ---
Presenting Problems - Arrival Data Date of Arrival on Unit: 05/11/20 Time of Arrival on Unit: 19:45 Mode of Transport: Ambulatory - Complaint OB-Reason for Admission/Chief Complaint: PIH Medical History - Information : 3 Para: 1 Term: 0 : 1 Abortions: Spontaneous or Elective: 1 Number of Living Children: 1 - Gestational Age Gestational Age by ALEJANDRINA (wks/days): 28 Weeks and 6 Days - History Complications: Prior Comment: hx of 36wk delivery with 1st due to preelcampsia Review of Systems - Review of Systems Constitutional: No problems Breast: No problems ENT: No problems Cardiovascular: No problems Respiratory: No problems Gastrointestinal: No problems Genitourinary: No problems Musculoskeletal: No problems Neurological: No problems Skin: No problems Vital Signs - Temperature Temperature: 98.1 F Temperature Source: Temporal Artery Scan - Pulse Right Pulse Rate: 86 Pulse Assessment Method: Pulse Oximetry - Respirations Respiratory Rate: 18 O2 Sat by Pulse Oximetry: 99 - Blood Pressure Right Arm Blood Pressure: 113/63 Blood Pressure Mean: 79 Blood Pressure Source: Automatic Cuff Medical Screen Scoring (Pre) - Cervical Exam Dilation: Exam Deferred Effacement: Exam Deferred - Uterine Contractions Frequency: N/A Duration: N/A Intensity: N/A - Maternal Vital Signs Maternal Temperature: N/A Maternal Blood Pressure: N/A Signs of Preeclampsia: N/A Maternal Respirations: N/A - Maternal Trauma Maternal Trauma: N/A - Assessment - Baby A Baseline FHR: 125 Heart Rate - NICHD Category: Category I (Normal) = 0 NST: Reactive Position: N/A - Total Score - Baby A Total Score - Baby A: 0 - Total Score - Baby B Total Score - Baby B: 0 - Total Score - Baby C Total Score - Baby C: 0 - Level of Risk - Baby A Level of Risk - Baby A: Low (0-5) - Level of Risk - Baby B Level of Risk - Baby B: Low (0-5) - Level of Risk - Baby C Level of Risk - Baby C: Low (0-5) Physician Notification (Pre) - Physician Notified Physician Notified Date: 05/11/20 Physician Notified Time: 20:20 - Notification Comment Comment: Reported on pt's hx of PIH with 1st , c/o all PIH sx on admission, but. since being here all sx have resolved. Reported on pt coming from work, described pts. job, reported on next appt Wednesday am, being followed by MFM, is on daily asa. Reported. on fhts, movement, no cntrx noted, reported on vitals WNL, appearance of urine sample. orders to d/c home.with instructions, keep scheduled appt in office Wednesday, no orders for labs. at this time. return with new or worsening sx. Disposition - Disposition OB Disposition: Discharge to home, Written follow up instructions reviewed Discharge Date: 05/11/20 Discharge Time: 21:05 I agree with the RN Medical Screening Exam: Yes Risk & Benefit of care provided described in d/c instruction: Yes Diagnosis: RELATED CONDITIONS, UNSPECIFIED, THIRD TRIMESTER
== END 2020-05-11 21:05 | disposition home or self-care (01) ==
LOC: FBPOP 19:45
PROVIDERS: ATTEND Obstetrics & Gynecology
DX: O26.93 Pregnancy related conditions, unspecified, third trimester (principal); Z3A.28 28 weeks gestation of pregnancy; Z87.51 Personal history of pre-term labor
CPT/HCPCS: 59025; 99213

== ENCOUNTER → 2020-05-21 | Outpatient (CLI) | payer BC | LOC: LABWHC1 15:11 | PROVIDERS: ATTEND Obstetrics & Gynecology | DX: Z20.828 Contact with and (suspected) exposure to other viral communicable diseases (principal) | CPT/HCPCS: U0003; C9803 ==

== ENCOUNTER 2020-05-28 17:32 | Outpatient (CLI) | payer BC ==
[2020-05-28 19:00] VITALS: BP 124/64; PULSE 90; RESP 18; TEMP 97.8
--- NOTE | 2020-05-30 12:16 | P.MSEPDOC ---
Presenting Problems - Arrival Data Date of Arrival on Unit: 05/28/20 Time of Arrival on Unit: 17:32 Mode of Transport: Ambulatory - Complaint OB-Reason for Admission/Chief Complaint: Other Comment: chest pain and abdominal tightening Medical History - Information : 4 Para: 1 Term: 0 : 1 Abortions: Spontaneous or Elective: 2 Number of Living Children: 1 - Gestational Age Gestational Age by ALEJANDRINA (wks/days): 31 Weeks and 2 Days Review of Systems - Review of Systems Constitutional: No problems Breast: No problems ENT: No problems Cardiovascular: Chest pain Respiratory: No problems Gastrointestinal: No problems Genitourinary: No problems Musculoskeletal: No problems Neurological: No problems Skin: No problems Vital Signs - Temperature Temperature: 97.8 F Temperature Source: Temporal Artery Scan - Pulse Pulse Oximetery Pulse Rate: 90 Pulse Assessment Method: Pulse Oximetry - Respirations Respiratory Rate: 18 Oxygen Delivery Method: Room Air O2 Sat by Pulse Oximetry: 99 - Blood Pressure Right Arm Blood Pressure: 124/64 Blood Pressure Mean: 84 Blood Pressure Source: Automatic Cuff Medical Screen Scoring (Pre) - Cervical Exam Dilation: 0 cm = 0 Effacement: Exam Deferred Membranes: Intact - Uterine Contractions Frequency: N/A Duration: N/A Intensity: N/A - Maternal Vital Signs Maternal Temperature: N/A Maternal Blood Pressure: N/A Signs of Preeclampsia: N/A Maternal Respirations: N/A - Maternal Trauma Maternal Trauma: N/A - Assessment - Baby A Baseline FHR: 135 Heart Rate - NICHD Category: Category I (Normal) = 0 NST: Reactive Position: N/A Station: N/A - Total Score - Baby A Total Score - Baby A: 0 - Total Score - Baby B Total Score - Baby B: 0 - Total Score - Baby C Total Score - Baby C: 0 - Level of Risk - Baby A Level of Risk - Baby A: Low (0-5) - Level of Risk - Baby B Level of Risk - Baby B: Low (0-5) - Level of Risk - Baby C Level of Risk - Baby C: Low (0-5) Physician Notification (Pre) - Physician Notified Physician Notified Date: 05/28/20 Physician Notified Time: 18:40 New Order Received: Yes - Notification Comment Comment: Dr. Leone called. Report given on maternal and status, pt's complaints of. abdominal tightening, chest pain, and vaginal wetness. Pt also has a hx of. "preeclampsia" and sees a high risk physician at this time. Pt denies any chest pain at. this time. BPs at 124/64, 117/65, and 107/63. One or two contractions seen on the. monitor, abdomen soft to palpation. FFN collected, amnisure negative, and SVE. closed/thick/high. Orders to discharge pt home with instructions to rest, keep upcoming appointments, take tylenol for pain if needed, and be seen in ER if chest pain continues. Reassure pt that obstetrically, pt looks appropriate at this time. Do not send FFN Disposition - Disposition OB Disposition: Discharge to home Discharge Date: 05/28/20 Discharge Time: 18:45 I agree with the RN Medical Screening Exam: Yes Risk & Benefit of care provided described in d/c instruction: Yes Diagnosis: RELATED CONDITIONS, UNSPECIFIED, THIRD TRIMESTER
== END 2020-05-28 18:45 | disposition home or self-care (01) ==
LOC: FBPOP 17:32
PROVIDERS: ATTEND Obstetrics & Gynecology
DX: O26.93 Pregnancy related conditions, unspecified, third trimester (principal); Z3A.31 31 weeks gestation of pregnancy
CPT/HCPCS: 59025; 84112; 99213

== ENCOUNTER 2020-06-05 13:04 | Outpatient (CLI) | payer BC ==
[2020-06-05 18:01] VITALS: BP 123/61; PULSE 98; RESP 18; TEMP 98
--- NOTE | 2020-06-13 09:34 | P.MSEPDOC ---
Presenting Problems - Arrival Data Date of Arrival on Unit: 06/05/20 Time of Arrival on Unit: 13:04 Mode of Transport: Ambulatory - Complaint OB-Reason for Admission/Chief Complaint: Rule Out PROM Medical History - Information : 4 Para: 1 Term: 0 : 1 Abortions: Spontaneous or Elective: 2 Number of Living Children: 1 - Gestational Age Gestational Age by ALEJANDRINA (wks/days): 32 Weeks and 3 Days Review of Systems - Review of Systems Constitutional: No problems Breast: No problems ENT: No problems Cardiovascular: No problems Respiratory: No problems Gastrointestinal: No problems Genitourinary: No problems Musculoskeletal: No problems Neurological: No problems Skin: No problems Vital Signs - Temperature Temperature: 98.0 F Temperature Source: Oral - Pulse Right Brachial Pulse Rate: 98 Pulse Assessment Method: Automatic Cuff - Respirations Respiratory Rate: 18 Oxygen Delivery Method: Room Air - Blood Pressure Right Arm Blood Pressure: 123/61 Blood Pressure Mean: 81 Blood Pressure Source: Automatic Cuff Medical Screen Scoring (Pre) - Cervical Exam Dilation: 0 cm = 0 Membranes: Intact - Uterine Contractions Frequency: N/A Duration: N/A Intensity: N/A - Maternal Vital Signs Maternal Temperature: N/A Maternal Blood Pressure: N/A Signs of Preeclampsia: N/A Maternal Respirations: N/A - Maternal Trauma Maternal Trauma: N/A - Assessment - Baby A Baseline FHR: 135 Heart Rate - NICHD Category: Category I (Normal) = 0 NST: Reactive Position: N/A Station: N/A - Total Score - Baby A Total Score - Baby A: 0 - Total Score - Baby B Total Score - Baby B: 0 - Total Score - Baby C Total Score - Baby C: 0 - Level of Risk - Baby A Level of Risk - Baby A: Low (0-5) - Level of Risk - Baby B Level of Risk - Baby B: Low (0-5) - Level of Risk - Baby C Level of Risk - Baby C: Low (0-5) Physician Notification (Pre) - Physician Notified Physician Notified Date: 06/05/20 Physician Notified Time: 13:55 New Order Received: Yes - Notification Comment Comment: D/C Home Disposition - Disposition OB Disposition: Discharge to home Discharge Date: 06/05/20 Discharge Time: 14:00 I agree with the RN Medical Screening Exam: Yes Risk & Benefit of care provided described in d/c instruction: Yes Diagnosis: RELATED CONDITIONS, UNSPECIFIED, THIRD TRIMESTER (?SROM)
== END 2020-06-05 14:00 | disposition home or self-care (01) ==
LOC: FBPOP 13:04
PROVIDERS: ATTEND Obstetrics & Gynecology
DX: O26.93 Pregnancy related conditions, unspecified, third trimester (principal); Z3A.32 32 weeks gestation of pregnancy
CPT/HCPCS: 59025; 84112; 99213

== ENCOUNTER 2020-06-11 10:15 | Outpatient (CLI) | payer BC, OTHER ==
[2020-06-11 11:35] VITALS: BP 108/67; PULSE 77; RESP 18; TEMP 98.1
[2020-06-11 11:36] LABS: Basophils % (A) 0 %; Eosinophils # (A) 0.1 k/uL (0-0.7); Eosinophils % (A) 1 %; HCT 36.5 % (34.0-46.0); Lymphocytes # (A) 1.7 k/uL (1.0-4.8); Lymphocytes % (A) 16 %; MCH 28.9 pg (25.0-35.0); MCHC 32.9 g/dL (31.0-37.0); MCV 88.1 fL (80.0-100.0); Mean Platelet Volume 7.1; Monocytes # (A) 0.6 k/uL (0-1.0); Monocytes % (A) 6 %; Neutrophils # (A) 7.9 k/uL (1.3-7.7); Neutrophils % (A) 75 %; Platelet Count 279 k/uL (150-450); RBC 4.14 m/uL (3.80-5.40); RDW 12.9 % (11.5-15.5); WBC 10.4 k/uL (3.8-10.6)
[2020-06-11 11:45] LABS: ALT 10 U/L (4-34); AST 22 U/L (14-36); African American GFR (CKD) >90 (>60 ml/min/1.73 sqM); Blood Urea Nitrogen 6 mg/dL (7-17); LDH 399 U/L (313-618); Non-African American GFR(CKD) >90 (>60 ml/min/1.73 sqM); Uric Acid 3.2 mg/dL (3.7-7.4)
[2020-06-11 11:46] LABS: Bacteria,Urine Rare /hpf; Mucus,Urine Rare /hpf; Protein/Creatinine Ratio,Urine 0.333; RBC,Urine 1 /hpf (0-5); Squamous Epithelial Cell,Urine 3 /hpf (0-4); WBC,Urine 4 /hpf (0-5)
[2020-06-11 11:47] LABS: Appearance,Urine Clear (Clear); Color,Urine Yellow; Creatinine,Urine Random 32.5 mg/dL; Glucose,Urine (UA) Negative (Negative); Ketones,Urine Negative (Negative); Protein,Urine Negative (Negative); Specific Gravity,Urine 1.005 (1.001-1.035)
[2020-06-11 11:48] LABS: Bilirubin,Urine Negative (Negative); Blood,Urine Negative (Negative); Leukocyte Esterase,Urine Small (Negative); Nitrite,Urine Negative (Negative); Urobilinogen,Urine <2.0 mg/dL (<2.0)
--- NOTE | 2020-06-11 12:04 | US ---
EXAMINATION TYPE: US abdomen limited DATE OF EXAM: 06/11/2020 COMPARISON: NONE CLINICAL HISTORY: 33 week with abd pain- especially RUQ. RUQ pain for a few days EXAM MEASUREMENTS: Liver Length: 14.2 cm Gallbladder Wall: 0.3 cm CBD: 0.3 cm Right Kidney: 10.7 x 3.9 x 4.9 cm Pancreas: wnl Liver: wnl Gallbladder: wnl Evidence for sonographic Horta's sign: no CBD: wnl Right Kidney: renal fullness versus mild hydronephrosis IMPRESSION: 1. There is mild fullness to the right collecting system suggestive of mild hydronephrosis.
--- NOTE | 2020-06-13 09:35 | P.MSEPDOC ---
Presenting Problems - Arrival Data Date of Arrival on Unit: 06/11/20 Time of Arrival on Unit: 10:15 Mode of Transport: Ambulatory - Complaint OB-Reason for Admission/Chief Complaint: PIH Medical History - Information : 3 Para: 1 Term: 0 : 1 Abortions: Spontaneous or Elective: 1 Number of Living Children: 1 - Gestational Age Gestational Age by ALEJANDRINA (wks/days): 33 Weeks and 2 Days - History Comment: hx of severe pih with first . ind of labor at 36 weeks at [facility] Review of Systems - Review of Systems Constitutional: No problems Breast: No problems ENT: No problems Cardiovascular: No problems Respiratory: No problems Gastrointestinal: No problems Genitourinary: No problems Musculoskeletal: No problems Neurological: No problems Skin: No problems Vital Signs - Temperature Temperature: 98.1 F Temperature Source: Oral - Pulse Right Brachial Pulse Rate: 77 Pulse Assessment Method: Automatic Cuff - Respirations Respiratory Rate: 18 Oxygen Delivery Method: Room Air O2 Sat by Pulse Oximetry: 97 - Blood Pressure Right Arm Blood Pressure: 108/67 Blood Pressure Mean: 80 Blood Pressure Source: Automatic Cuff Medical Screen Scoring (Pre) - Cervical Exam Dilation: Exam Deferred Effacement: Exam Deferred - Uterine Contractions Frequency: N/A Duration: N/A Intensity: N/A - Maternal Vital Signs Maternal Temperature: N/A Signs of Preeclampsia: N/A, Epigastric Pain = 1 Maternal Respirations: N/A - Maternal Trauma Maternal Trauma: N/A - Assessment - Baby A Baseline FHR: 145 Heart Rate - NICHD Category: Category I (Normal) = 0 NST: Reactive Position: N/A Station: N/A - Total Score - Baby A Total Score - Baby A: 1 - Total Score - Baby B Total Score - Baby B: 1 - Total Score - Baby C Total Score - Baby C: 1 - Level of Risk - Baby A Level of Risk - Baby A: Low (0-5) - Level of Risk - Baby B Level of Risk - Baby B: Low (0-5) - Level of Risk - Baby C Level of Risk - Baby C: Low (0-5) Physician Notification (Pre) - Physician Notified Physician Notified Date: 06/11/20 Physician Notified Time: 12:10 New Order Received: Yes - Notification Comment Comment: dr here and talked with pt. disch home. to keep sched appt next wednesday with him and to keep wednesday attp for high risk at [facility]. verb underst. assured that all labs and u/s report were wnl. baby foot in right uq against gallbladder. Disposition - Disposition OB Disposition: Discharge to home Discharge Date: 06/11/20 Discharge Time: 12:20 I agree with the RN Medical Screening Exam: Yes Risk & Benefit of care provided described in d/c instruction: Yes Diagnosis: GESTATIONAL HTN W/O SIGNIFICANT PROTEINURIA, THIRD TRIMESTER
== END 2020-06-11 12:30 | disposition home or self-care (01) ==
LOC: FBPOP 10:15
PROVIDERS: ATTEND Obstetrics & Gynecology
DX: O13.3 Gestational [pregnancy-induced] hypertension without significant proteinuria, third trimester (principal); Z3A.33 33 weeks gestation of pregnancy
CPT/HCPCS: 59025; 76705; 81001; 82565; 82570; 83615; 84156; 84450; 84460; 84520; 84550; 85025; 87086; 99215

== ENCOUNTER 2020-06-26 13:16 | Outpatient (CLI) | payer BC, OTHER ==
[2020-06-26 15:32] LABS: Appearance,Urine Clear (Clear); Bilirubin,Urine Negative (Negative); Blood,Urine Negative (Negative); Color,Urine Light Yellow; Glucose,Urine (UA) Negative (Negative); Ketones,Urine Negative (Negative); Leukocyte Esterase,Urine Small (Negative); Nitrite,Urine Negative (Negative); PH, Urine 7.5 (5.0-8.0); Protein,Urine Negative (Negative); RBC,Urine 1 /hpf (0-5); Specific Gravity,Urine 1.006 (1.001-1.035); Squamous Epithelial Cell,Urine 3 /hpf (0-4); Urobilinogen,Urine <2.0 mg/dL (<2.0); WBC,Urine 4 /hpf (0-5)
[2020-06-26 15:43] LABS: Protein/Creatinine Ratio,Urine 0.298
[2020-06-26 16:09] LABS: Basophils % (A) 0 %; Eosinophils # (A) 0.1 k/uL (0-0.7); Eosinophils % (A) 1 %; HCT 41.2 % (34.0-46.0); HGB 13.3 gm/dL (11.4-16.0); Lymphocytes # (A) 1.4 k/uL (1.0-4.8); Lymphocytes % (A) 13 %; MCH 28.9 pg (25.0-35.0); MCHC 32.2 g/dL (31.0-37.0); MCV 89.7 fL (80.0-100.0); Mean Platelet Volume 7.3; Monocytes # (A) 0.6 k/uL (0-1.0); Monocytes % (A) 5 %; Neutrophils # (A) 8.5 k/uL (1.3-7.7); Neutrophils % (A) 79 %; Platelet Count 273 k/uL (150-450); RDW 13.8 % (11.5-15.5); WBC 10.9 k/uL (3.8-10.6)
[2020-06-26 16:18] LABS: ALT 15 U/L (4-34); AST 30 U/L (14-36); African American GFR (CKD) >90 (>60 ml/min/1.73 sqM); Blood Urea Nitrogen 6 mg/dL (7-17); LDH 470 U/L (313-618); Non-African American GFR(CKD) >90 (>60 ml/min/1.73 sqM); Uric Acid 4.2 mg/dL (3.7-7.4)
[2020-06-26 17:21] VITALS: BP 109/70; PULSE 89; RESP 16; TEMP 98.2
--- NOTE | 2020-07-07 20:25 | P.MSEPDOC ---
Presenting Problems - Arrival Data Date of Arrival on Unit: 06/26/20 Time of Arrival on Unit: 13:16 Mode of Transport: Ambulatory - Complaint OB-Reason for Admission/Chief Complaint: Other Comment: c/o backpain blurred vision and headache Medical History - Information : 3 Para: 1 Term: 1 : 0 Abortions: Spontaneous or Elective: 0 Number of Living Children: 1 - Gestational Age Gestational Age by ALEJANDRINA (wks/days): 35 Weeks and 3 Days Review of Systems - Review of Systems Constitutional: No problems Breast: No problems ENT: No problems Cardiovascular: No problems Respiratory: No problems Gastrointestinal: No problems Genitourinary: No problems Musculoskeletal: No problems Neurological: No problems Skin: No problems Vital Signs - Temperature Temperature: 98.2 F Temperature Source: Oral - Pulse Right Brachial Pulse Rate: 89 Pulse Assessment Method: Automatic Cuff - Respirations Respiratory Rate: 16 Oxygen Delivery Method: Room Air O2 Sat by Pulse Oximetry: 98 - Blood Pressure Right Arm Blood Pressure: 109/70 Blood Pressure Mean: 83 Blood Pressure Source: Automatic Cuff Medical Screen Scoring (Pre) - Cervical Exam Dilation: 1-3 cm = 1 Effacement: More than 50% = 2 Membranes: Intact - Uterine Contractions Frequency: > 5 minutes apart = 1 Duration: N/A Intensity: N/A - Maternal Vital Signs Maternal Temperature: N/A Maternal Blood Pressure: N/A Signs of Preeclampsia: Headache = 1 Maternal Respirations: N/A - Maternal Trauma Maternal Trauma: N/A - Assessment - Baby A Baseline FHR: 130 Heart Rate - NICHD Category: Category I (Normal) = 0 NST: Reactive Position: N/A Station: N/A - Total Score - Baby A Total Score - Baby A: 5 - Total Score - Baby B Total Score - Baby B: 5 - Total Score - Baby C Total Score - Baby C: 5 - Level of Risk - Baby A Level of Risk - Baby A: Low (0-5) - Level of Risk - Baby B Level of Risk - Baby B: Low (0-5) - Level of Risk - Baby C Level of Risk - Baby C: Low (0-5) Physician Notification (Pre) - Physician Notified Physician Notified Date: 06/26/20 Physician Notified Time: 16:52 New Order Received: Yes - Notification Comment Comment: nst reactive lab work done cervix 3cm 70% effaced -2 and rechecked with no changed amnisure negative. may discharge to home with instructions Disposition - Disposition OB Disposition: Discharge to home Discharge Date: 06/26/20 Discharge Time: 16:53 I agree with the RN Medical Screening Exam: Yes Risk & Benefit of care provided described in d/c instruction: Yes Diagnosis: RELATED CONDITIONS, UNSPECIFIED, THIRD TRIMESTER
== END 2020-06-26 17:20 | disposition home or self-care (01) ==
LOC: FBPOP 13:16
PROVIDERS: ATTEND Obstetrics & Gynecology
DX: O26.93 Pregnancy related conditions, unspecified, third trimester (principal); Z3A.35 35 weeks gestation of pregnancy
CPT/HCPCS: 59025; 81001; 82565; 82570; 83615; 84112; 84156; 84450; 84460; 84520; 84550; 85025; 99213

== ENCOUNTER 2020-07-02 18:54 | Outpatient (CLI) | payer BC, OTHER ==
[2020-07-02 20:27] VITALS: BP 115/72; PULSE 90; RESP 16; TEMP 98.3
--- NOTE | 2020-07-07 20:24 | P.MSEPDOC ---
Presenting Problems - Arrival Data Date of Arrival on Unit: 07/02/20 Time of Arrival on Unit: 18:54 Mode of Transport: Ambulatory - Complaint OB-Reason for Admission/Chief Complaint: Pain Comment: Lower back pain. Medical History - Information : 3 Para: 1 Term: 0 : 1 Abortions: Spontaneous or Elective: 0 Number of Living Children: 1 - Gestational Age Gestational Age by ALEJANDRINA (wks/days): 36 Weeks and 2 Days - History Complications: Prior Review of Systems - Review of Systems Constitutional: No problems Breast: No problems ENT: No problems Cardiovascular: No problems Respiratory: No problems Gastrointestinal: No problems Genitourinary: No problems Musculoskeletal: No problems Neurological: No problems Skin: No problems Vital Signs - Temperature Temperature: 98.3 F Temperature Source: Oral - Pulse Right Brachial Pulse Rate: 90 Pulse Assessment Method: Automatic Cuff - Respirations Respiratory Rate: 16 Oxygen Delivery Method: Room Air O2 Sat by Pulse Oximetry: 97 - Blood Pressure Right Arm Blood Pressure: 115/72 Blood Pressure Mean: 86 Blood Pressure Source: Automatic Cuff Medical Screen Scoring (Pre) - Cervical Exam Dilation: 1-3 cm = 1 Membranes: Intact - Uterine Contractions Frequency: > 5 minutes apart = 1 Duration: N/A Intensity: N/A - Maternal Vital Signs Maternal Temperature: N/A Maternal Blood Pressure: N/A Signs of Preeclampsia: N/A Maternal Respirations: N/A - Maternal Trauma Maternal Trauma: N/A - Assessment - Baby A Baseline FHR: 120 Heart Rate - NICHD Category: Category I (Normal) = 0 NST: Reactive Position: N/A Station: N/A - Total Score - Baby A Total Score - Baby A: 2 - Total Score - Baby B Total Score - Baby B: 2 - Total Score - Baby C Total Score - Baby C: 2 - Level of Risk - Baby A Level of Risk - Baby A: Low (0-5) - Level of Risk - Baby B Level of Risk - Baby B: Low (0-5) - Level of Risk - Baby C Level of Risk - Baby C: Low (0-5) Physician Notification (Pre) - Physician Notified Physician Notified Date: 07/02/20 Physician Notified Time: 19:54 New Order Received: Yes - Notification Comment Comment: Dr. Fallno in unit. aware of pt c/o. VS WNL. Reactive NST. Vag exam of. /-2. No change from vag exam from apt in office earlier this afternoon. Orders. recieved to d/c pt to home if no change in vag exam after 1 hour. Disposition - Disposition OB Disposition: Discharge to home Discharge Date: 07/02/20 Discharge Time: 20:19 I agree with the RN Medical Screening Exam: Yes Risk & Benefit of care provided described in d/c instruction: Yes Diagnosis: FALSE LABOR BEFORE 37 COMPLETED WEEKS OF GEST, THIRD TRI
== END 2020-07-02 20:19 | disposition home or self-care (01) ==
LOC: FBPOP 18:54
PROVIDERS: ATTEND Obstetrics & Gynecology
DX: O47.03 False labor before 37 completed weeks of gestation, third trimester (principal); Z3A.36 36 weeks gestation of pregnancy
CPT/HCPCS: 59025; 99213

== ENCOUNTER 2020-07-04 18:51 | Outpatient (CLI) | payer BC, OTHER ==
[2020-07-04 19:46] VITALS: BP 117/68; PULSE 92; RESP 16; TEMP 98.7
--- NOTE | 2020-07-10 16:48 | P.MSEPDOC ---
Presenting Problems - Arrival Data Date of Arrival on Unit: 07/04/20 Time of Arrival on Unit: 18:51 Mode of Transport: Ambulatory - Complaint OB-Reason for Admission/Chief Complaint: Decreased Movement Medical History - Information : 3 Para: 1 Term: 0 : 1 Abortions: Spontaneous or Elective: 0 Number of Living Children: 1 - Gestational Age Gestational Age by ALEJANDRINA (wks/days): 36 Weeks and 4 Days Review of Systems - Review of Systems Constitutional: No problems Breast: No problems ENT: No problems Cardiovascular: No problems Respiratory: No problems Gastrointestinal: No problems Genitourinary: No problems Musculoskeletal: No problems Neurological: No problems Skin: No problems Vital Signs - Temperature Temperature: 98.7 F Temperature Source: Temporal Artery Scan - Pulse Right Brachial Pulse Rate: 92 Pulse Assessment Method: Automatic Cuff - Respirations Respiratory Rate: 16 Oxygen Delivery Method: Room Air O2 Sat by Pulse Oximetry: 97 - Blood Pressure Right Arm Blood Pressure: 117/68 Blood Pressure Mean: 84 Blood Pressure Source: Automatic Cuff Medical Screen Scoring (Pre) - Cervical Exam Dilation: Exam Deferred Effacement: Exam Deferred Membranes: Intact - Uterine Contractions Frequency: N/A Duration: N/A Intensity: N/A - Maternal Vital Signs Maternal Temperature: N/A Maternal Blood Pressure: N/A Signs of Preeclampsia: N/A Maternal Respirations: N/A - Assessment - Baby A Baseline FHR: 120 Heart Rate - NICHD Category: Category I (Normal) = 0 NST: Reactive Position: N/A Station: N/A - Total Score - Baby A Total Score - Baby A: 0 - Total Score - Baby B Total Score - Baby B: 0 - Total Score - Baby C Total Score - Baby C: 0 - Level of Risk - Baby A Level of Risk - Baby A: Low (0-5) - Level of Risk - Baby B Level of Risk - Baby B: Low (0-5) - Level of Risk - Baby C Level of Risk - Baby C: Low (0-5) Physician Notification (Pre) - Physician Notified Physician Notified Date: 07/04/20 Physician Notified Time: 19:24 New Order Received: Yes - Notification Comment Comment: Dr. Leone given report on pt. aware of pt c/o. VS WNL. Reactive NST. Orders recieved to d/c pt to home. Disposition - Disposition OB Disposition: Discharge to home Discharge Date: 07/04/20 Discharge Time: 19:38 I agree with the RN Medical Screening Exam: Yes Risk & Benefit of care provided described in d/c instruction: Yes Diagnosis: DECREASED MOVEMENTS, THIRD TRIMESTER, UNSP
== END 2020-07-04 19:38 | disposition home or self-care (01) ==
LOC: FBPOP 18:51
PROVIDERS: ATTEND Obstetrics & Gynecology
DX: O36.8130 Decreased fetal movements, third trimester, not applicable or unspecified (principal); Z3A.36 36 weeks gestation of pregnancy
CPT/HCPCS: 59025; 99213

== ENCOUNTER 2020-07-07 14:48 | Outpatient (CLI) | payer BC, OTHER ==
[2020-07-07 15:59] VITALS: BP 115/67; PULSE 91; RESP 16; TEMP 98.2
--- NOTE | 2020-07-23 09:54 | P.MSEPDOC ---
Presenting Problems - Arrival Data Date of Arrival on Unit: 07/07/20 Time of Arrival on Unit: 14:45 Mode of Transport: Ambulatory - Complaint OB-Reason for Admission/Chief Complaint: Rule Out SROM Medical History - Information : 3 Para: 1 Term: 1 : 0 Abortions: Spontaneous or Elective: 1 Number of Living Children: 1 - Gestational Age Gestational Age by ALEJANDRINA (wks/days): 37 Weeks and 0 Days Review of Systems - Review of Systems Constitutional: No problems Breast: No problems ENT: No problems Cardiovascular: No problems Respiratory: No problems Gastrointestinal: No problems Genitourinary: No problems Musculoskeletal: No problems Neurological: No problems Skin: No problems Vital Signs - Temperature Temperature: 98.2 F Temperature Source: Oral - Pulse Right Brachial Pulse Rate: 91 Pulse Assessment Method: Automatic Cuff - Respirations Respiratory Rate: 16 Oxygen Delivery Method: Room Air - Blood Pressure Right Arm Blood Pressure: 115/67 Blood Pressure Mean: 83 Blood Pressure Source: Automatic Cuff Medical Screen Scoring (Pre) - Cervical Exam Dilation: 1-3 cm = 1 Membranes: Intact - Uterine Contractions Frequency: > 5 minutes apart = 1 - Maternal Vital Signs Maternal Temperature: N/A Maternal Blood Pressure: N/A Signs of Preeclampsia: N/A Maternal Respirations: N/A - Maternal Trauma Maternal Trauma: N/A - Assessment - Baby A Baseline FHR: 130 Heart Rate - NICHD Category: Category I (Normal) = 0 NST: Reactive Position: N/A Station: N/A - Total Score - Baby A Total Score - Baby A: 2 - Total Score - Baby B Total Score - Baby B: 2 - Total Score - Baby C Total Score - Baby C: 2 - Level of Risk - Baby A Level of Risk - Baby A: Low (0-5) - Level of Risk - Baby B Level of Risk - Baby B: Low (0-5) - Level of Risk - Baby C Level of Risk - Baby C: Low (0-5) Physician Notification (Pre) - Physician Notified Physician Notified Date: 07/07/20 Physician Notified Time: 15:17 New Order Received: Yes - Notification Comment Comment: d/c home Disposition - Disposition OB Disposition: Discharge to home Discharge Date: 07/07/20 Discharge Time: 15:59 I agree with the RN Medical Screening Exam: Yes Risk & Benefit of care provided described in d/c instruction: Yes Diagnosis: FALSE LABOR BEFORE 37 COMPLETED WEEKS OF GEST, THIRD TRI
== END 2020-07-07 16:00 | disposition home or self-care (01) ==
LOC: FBPOP 14:48
PROVIDERS: ATTEND Obstetrics & Gynecology
DX: O47.03 False labor before 37 completed weeks of gestation, third trimester (principal); Z3A.37 37 weeks gestation of pregnancy
CPT/HCPCS: 59025; 84112; 99213

== ENCOUNTER 2020-07-11 13:08 | Outpatient (CLI) | payer BC, OTHER ==
[2020-07-11 13:31] LABS: Glucose,Whole Blood 121 mg/dL (75-99)
[2020-07-11 14:18] VITALS: BP 122/70; PULSE 83; RESP 16; TEMP 97
--- NOTE | 2020-07-11 20:49 | P.MSEPDOC ---
Presenting Problems - Arrival Data Date of Arrival on Unit: 07/11/20 Time of Arrival on Unit: 13:08 Mode of Transport: Ambulatory - Complaint OB-Reason for Admission/Chief Complaint: Observation/Evaluation Comment: Pt c/o dizziness and blurred vision. Dizziness since 129, blurred vision x 1 week. Medical History - Information : 3 Para: 1 Term: 0 : 1 Abortions: Spontaneous or Elective: 1 Number of Living Children: 1 - Gestational Age Gestational Age by ALEJANDRINA (wks/days): 37 Weeks and 4 Days Review of Systems - Review of Systems Constitutional: No problems Breast: No problems ENT: No problems Cardiovascular: No problems Respiratory: No problems Gastrointestinal: No problems Genitourinary: No problems Musculoskeletal: No problems Neurological: Dizziness Skin: No problems Vital Signs - Temperature Temperature: 97 F Temperature Source: Temporal Artery Scan - Pulse Right Sitting Brachial Pulse Rate: 83 Pulse Assessment Method: Automatic Cuff - Respirations Respiratory Rate: 16 Oxygen Delivery Method: Room Air O2 Sat by Pulse Oximetry: 97 - Blood Pressure Right Arm Sitting Blood Pressure: 122/70 Blood Pressure Mean: 87 Blood Pressure Source: Automatic Cuff Medical Screen Scoring (Pre) - Cervical Exam Dilation: 4-7 cm = 2 Effacement: More than 50% = 2 Membranes: Intact - Uterine Contractions Frequency: N/A Duration: N/A Intensity: N/A - Maternal Vital Signs Maternal Temperature: N/A Maternal Blood Pressure: N/A Signs of Preeclampsia: N/A Maternal Respirations: N/A - Maternal Trauma Maternal Trauma: N/A - Assessment - Baby A Baseline FHR: 130 Heart Rate - NICHD Category: Category I (Normal) = 0 NST: Reactive Position: N/A Station: N/A - Total Score - Baby A Total Score - Baby A: 4 - Total Score - Baby B Total Score - Baby B: 4 - Total Score - Baby C Total Score - Baby C: 4 - Level of Risk - Baby A Level of Risk - Baby A: Low (0-5) - Level of Risk - Baby B Level of Risk - Baby B: Low (0-5) - Level of Risk - Baby C Level of Risk - Baby C: Low (0-5) Physician Notification (Pre) - Physician Notified Physician Notified Date: 07/11/20 Physician Notified Time: 13:51 - Notification Comment Comment: Monica c\Dr. Mcclure, reviewed pt c/o, vital signs, pt had a PIH work up on Wednesday at [place]-which was negative. Reactive NST, pt scheduled for IOL Wednesday. Dr. Mcclure aware of pt, orders SVE and pt may be d/c home if no change from yesterday. Disposition - Disposition OB Disposition: Discharge to home, Written follow up instructions reviewed Discharge Date: 07/11/20 Discharge Time: 14:00 I agree with the RN Medical Screening Exam: Yes Risk & Benefit of care provided described in d/c instruction: Yes Diagnosis: OTH RELATED CONDITIONS, UNSPECIFIED TRIMESTER (This patient presented to labor and delivery with multiple complaints which she's been having for several weeks. Patient was seen by maternal medicine apparently 2 days ago and was evaluated for preeclampsia and this was negative. Patient was also seen by Dr. Matthews yesterday and again blood pressures were beautiful and evaluation negative. At this time she complains has multiple concerns and complaints including dizziness and discomfort and possible contractions. Blood pressure remains completely normal, heart tones are reactive, and there is no evidence of maternal compromise. There is no evidence of labor at this time as well. Patient was felt to be stable for discharge home to follow up with Dr. Matthews as scheduled and for her scheduled induction.)
== END 2020-07-11 14:00 | disposition home or self-care (01) ==
LOC: FBPOP 13:08
PROVIDERS: ATTEND Obstetrics & Gynecology
DX: O26.893 Other specified pregnancy related conditions, third trimester (principal); Z3A.37 37 weeks gestation of pregnancy
CPT/HCPCS: 59025; 99213

== ENCOUNTER 2020-07-15 06:27 | Inpatient (IN) | payer BC, OTHER ==
[2020-07-15] MEDS ORDERED: LIDOCAINE 0.5% (PF) 5 MG/ML (50 ML SDV) SQ PRN (06:41)
[2020-07-15] MEDS ORDERED: TERBUTALINE 1 MG/ML VIAL SQ PRN (06:41)
[2020-07-15] MEDS ORDERED: CARBOPROST TROMETHAMINE 250 MCG/ML 1 ML AMP IM PRN (06:41)
[2020-07-15] MEDS ORDERED: METHYLERGONOVINE 0.2 MG/ML 1 ML AMP IM PRN (06:41)
[2020-07-15] MEDS ORDERED: OXYTOCIN 10 UNIT/ML 1 ML VIAL IM PRN (06:41)
[2020-07-15] MEDS ORDERED: OXYTOCIN 30 UNITS/500 ML NS 30 UNIT in SALINE 1 500ML.BAG IV SCH (06:45)
[2020-07-15] MEDS ORDERED: LACTATED RINGERS 1,000 ML IV SCH (06:45)
[2020-07-15 06:53] LABS: Basophils % (A) 0 %; Eosinophils # (A) 0.1 k/uL (0-0.7); Eosinophils % (A) 1 %; HCT 38.3 % (34.0-46.0); HGB 12.4 gm/dL (11.4-16.0); Lymphocytes % (A) 19 %; MCH 28.6 pg (25.0-35.0); MCHC 32.4 g/dL (31.0-37.0); MCV 88.2 fL (80.0-100.0); Mean Platelet Volume 6.8; Monocytes # (A) 0.7 k/uL (0-1.0); Monocytes % (A) 7 %; Neutrophils # (A) 7.4 k/uL (1.3-7.7); Neutrophils % (A) 71 %; Platelet Count 264 k/uL (150-450); RBC 4.34 m/uL (3.80-5.40); RDW 13.8 % (11.5-15.5); WBC 10.5 k/uL (3.8-10.6)
[2020-07-15 07:26] VITALS: RESP 16
[2020-07-15] MEDS ORDERED: AMPICILLIN 2,000 MG in SODIUM CHLORIDE 0.9% 100 ML IVPB STA (08:52)
[2020-07-15] MEDS ORDERED: BUTORPHANOL 1 MG/ML 1 ML VIAL IV PRN (09:02)
[2020-07-15] MEDS ORDERED: ACETAMINOPHEN TAB 325 MG TAB PO PRN (12:13)
[2020-07-15] MEDS ORDERED: diphenhydrAMINE 50 MG CAP PO PRN (12:13)
[2020-07-15] MEDS ORDERED: diphenhydrAMINE 50 MG/ML 1 ML VIAL IVP PRN ×2 (12:13)
[2020-07-15] MEDS ORDERED: BENZOCAINE/MENTHOL SPRAY 1 GM/SPRAY AEROSOL TOPICAL PRN (12:13)
[2020-07-15] MEDS ORDERED: LANOLIN CREAM 5 GM TUBE TOPICAL PRN (12:13)
[2020-07-15] MEDS ORDERED: ZOLPIDEM 5 MG TAB PO PRN (12:13)
[2020-07-15] MEDS ORDERED: HYDROCORTISONE 2.5% RECTAL CREAM 30 GM TUBE RECTAL PRN (12:13)
[2020-07-15] MEDS ORDERED: diphenhydrAMINE 25 MG CAP PO PRN (12:13)
[2020-07-15] MEDS ORDERED: SIMETHICONE 80 MG CHEWABLE PO PRN (12:13)
[2020-07-15] MEDS ORDERED: OXYTOCIN 20 UNITS/1000 ML NS 1,000 ML IV SCH (12:15)
--- NOTE | 2020-07-15 12:16 | P.HPOB ---
History of Present Illness H&P Date: 07/15/20 Chief Complaint: Intrauterine at 38 weeks: Induction of labor Cleopatra is a 29-year-old G 3 P1 at 38 weeks gestation arise for induction of labor due to history of severe preeclampsia with left and severe preeclamptic symptoms at this time. She is being followed with maternal medicine and has had severe headaches and visual changes over the last week. She also has fallen off the growth curve and in speaking with maternal medicine the decision was to move forward with the delivery at this time. Risks of early delivery were reviewed the patient in detail and did include but were not limited to baby having lungs not quite mature needs to stay for an extended time in the hospital. She is aware of this understands this and agrees and wants to move forward with delivery. She is dilated to 4 cm 80% effaced and -2 station. Artificial rupture membranes was performed and clear fluid is noted. Her Precis course has been, K by multiple weeks of increased pressure and discomfort as well as signs and symptoms of preeclampsia. She is been co- managed with maternal medicine due to same. On physical exam vital signs are stable and afebrile. Heart regular, lungs clear, extremities are without pain. Abdomen soft gravid uterus is noted. Category 1 tracing is noted. Pertinent labs include A+ blood type, Rh antibody was negative, rubella was immune, hepatitis B surface surface and was negative as was HIV. GBS was positive. We'll plan IV antibiotics as prophylaxis. All questions are answered for her at this time. Past Medical History Past Medical History: Asthma Additional Past Medical History / Comment(s): hx of L4-L5 fracture History of Any Multi-Drug Resistant Organisms: None Reported Past Surgical History: No Surgical Hx Reported Past Anesthesia/Blood Transfusion Reactions: No Reported Reaction Past Psychological History: Depression Smoking Status: Never smoker Past Alcohol Use History: None Reported Past Drug Use History: None Reported - Past Family History Mother Family Medical History: No Reported History Additional Family Medical History / Comment(s): Grandfather has hx of DM and Cancer Father History Unknown: Yes Medications and Allergies Home Medications Medication Instructions Recorded Confirmed Type Aspirin [Children's Aspirin] 81 mg PO DAILY MDD 1 tab 04/29/20 07/15/20 History Pnv No.95/Ferrous Fum/Folic AC 1 tab PO DAILY MDD 1 tab 04/29/20 07/15/20 History [ Multivitamin Tablet] Acetaminophen [Tylenol] 500 mg PO Q4-6H PRN 07/15/20 07/15/20 History Famotidine [Pepcid] 20 mg PO DAILY 07/15/20 07/15/20 History Allergies Allergy/AdvReac Type Severity Reaction Status Date / Time bee venom protein (honey bee) Allergy Severe Anaphylaxis Verified 07/15/20 06:38 Exam Osteopathic Statement: *. No significant issues noted on an osteopathic structural exam other than those noted in the History and Physical/Consult. Vital Signs Temp Pulse Resp BP Pulse Ox 07/15/20 06:37 97.9 F 86 16 113/76 98 Intake and Output 07/14/20 07/15/20 07/15/20 22:59 06:59 14:59 Other: Weight 49.895 kg - OBG Physical Exam Breast: both: normal (no masses) Abdomen: bowel sounds normal, no diffuse tenderness, no bruit present, no guarding noted, no hepatomegaly, no splenomegaly, no mass Vulva: both: normal Vagina: normal moisture, no discharge Cervix: no lesion, no discharge Uterus: normal size, normal contour Adnexa: both: normal Anus/Rectum: normal perianal skin, no rectal mass, no hemorrhoids, heme negative Results Result Diagrams: 07/15/20 06:45
--- NOTE | 2020-07-15 12:18 | P.PROBDLV ---
Vaginal Delivery Note - . Vaginal Delivery Note: Patient progressed complete and pushed with spontaneous vaginal delivery of a viable female over an intact perineum. Falling deliver the head patient did not push very well and despite gentle downward traction the anterior shoulder was not clearing fully therefore I did reach in and grasp underneath the posterior axilla and help rotate the anterior shoulder under the pubic bone and then we were easily able to deliver the baby. This was from left occiput an terior position. Once baby was delivered mouth nares were bulb suctioned and baby was placed on mother's abdomen where the umbilical cord was allowed to pulsate for 45 seconds prior to clamping and cutting. Nursery personnel was present and assumed care. Placenta was then delivered intact. It is noted that during the deliver the placenta palpably I can feel the umbilical cord from the placental disc therefore minimal traction was used and while massaging the uterus and once the Center was from uterine wall revealed a have her help by pushing the placenta down and guiding it out. Disc appears complete with membranes intact. scores are 9 and 9 at one and 5 minutes respectively and the weight was 6 lbs. 1 oz. Both mother and baby are stable following delivery.
[2020-07-15] MEDS ORDERED: AMPICILLIN 1,000 MG in SODIUM CHLORIDE 0.9% 50 ML IVPB SCH (13:00)
[2020-07-15] MEDS: IBUPROFEN 600 MG TAB PO PRN ×2 (13:44→20:00)
[2020-07-15] MEDS: SENNOSIDES-DOCUSATE SODIUM 1 EACH TAB PO SCH (20:00)
[2020-07-16 07:03] LABS: Basophils % (A) 0 %; Eosinophils # (A) 0.1 k/uL (0-0.7); Eosinophils % (A) 1 %; HCT 33.9 % (34.0-46.0); HGB 11.2 gm/dL (11.4-16.0); Lymphocytes % (A) 16 %; MCH 29.3 pg (25.0-35.0); MCHC 32.9 g/dL (31.0-37.0); MCV 89.2 fL (80.0-100.0); Monocytes # (A) 0.8 k/uL (0-1.0); Monocytes % (A) 6 %; Neutrophils # (A) 9.2 k/uL (1.3-7.7); Neutrophils % (A) 75 %; Platelet Count 240 k/uL (150-450); RBC 3.81 m/uL (3.80-5.40); RDW 14.2 % (11.5-15.5); WBC 12.3 k/uL (3.8-10.6)
[2020-07-16] MEDS: SENNOSIDES-DOCUSATE SODIUM 1 EACH TAB PO SCH ×2 (08:05→19:47)
--- NOTE | 2020-07-16 08:58 | P.DS ---
Providers Date of admission: 07/15/20 06:27 Expected date of discharge: 07/16/20 Attending physician: Ronald Fallon Primary care physician: Stated None Hospital Course: Cleopatra is doing very well day 1. She is ambulating, voiding and tolerating her diet. She voices no complaints. Vital signs are stable and afebrile. Heart regular, lungs clear, extremities without pain. Abdomen is soft uterus is firm and lochia is reported light. Plan will be to discharge her to home tonight if baby is able to go home. If not we'll plan to see her tomorrow. Otherwise all questions were answered and discharge instructions were thoroughly reviewed. She is stable for discharge this time. Patient Condition at Discharge: Good Plan - Discharge Summary New Discharge Prescriptions: No Action Pnv No.95/Ferrous Fum/Folic AC [ Multivitamin Tablet] 1 tab PO DAILY MDD 1 tab Aspirin [Children's Aspirin] 81 mg PO DAILY MDD 1 tab Famotidine [Pepcid] 20 mg PO DAILY Acetaminophen [Tylenol] 500 mg PO Q4-6H PRN PRN Reason: Pain Discharge Medication List Aspirin [Children's Aspirin] 81 mg PO DAILY MDD 1 tab 04/29/20 [History] Pnv No.95/Ferrous Fum/Folic AC [ Multivitamin Tablet] 1 tab PO DAILY MDD 1 tab 04/29/20 [History] Acetaminophen [Tylenol] 500 mg PO Q4-6H PRN 07/15/20 [History] Famotidine [Pepcid] 20 mg PO DAILY 07/15/20 [History] Follow up Appointment(s)/Referral(s): Ronald Fallon DO [Doctor of Osteopathic Medicine] - 6 Weeks Activity/Diet/Wound Care/Special Instructions: No heavy lifting, limit stairs and driving, and pelvic rest. If any high temperatures, heavy bleeding, or severe pain call my office Discharge Disposition: HOME SELF-CARE
[2020-07-16] MEDS: IBUPROFEN 600 MG TAB PO PRN (19:46)
[2020-07-17 01:13] VITALS: BP 101/58; PULSE 71; TEMP 98
== END 2020-07-17 06:00 | disposition home or self-care (01) | DRG 807 ==
LOC: 4FBP 06:27
PROVIDERS: ADMIT Obstetrics & Gynecology; ATTEND Obstetrics & Gynecology
PROC: 10E0XZZ Delivery of Products of Conception, External Approach (ICD-10-PCS; principal; 2020-07-15)
DX: O99.824 Streptococcus B carrier state complicating childbirth (principal); Z37.0 Single live birth; O99.344 Other mental disorders complicating childbirth; O99.52 Diseases of the respiratory system complicating childbirth; J45.909 Unspecified asthma, uncomplicated; F32.9 Major depressive disorder, single episode, unspecified; Z3A.38 38 weeks gestation of pregnancy; Z79.82 Long term (current) use of aspirin; Z83.3 Family history of diabetes mellitus; Z80.9 Family history of malignant neoplasm, unspecified; Z91.030 Bee allergy status
CPT/HCPCS: 85025; 86850; 86900; 86901; 88307

== ENCOUNTER → 2020-10-10 | Outpatient (CLI) | payer BC, OTHER | END | disposition home or self-care (01) | LOC: LABWHC1 09:12 | PROVIDERS: ATTEND Nurse Practitioner Family | DX: R52 Pain, unspecified (principal); R53.83 Other fatigue; Z20.828 Contact with and (suspected) exposure to other viral communicable diseases | CPT/HCPCS: 87635; C9803 ==

== ENCOUNTER 2020-12-12 09:06 | Emergency (ER) | payer OTHER, BC ==
[2020-12-12 09:21] VITALS: BP 102/74; PULSE 76; RESP 16; TEMP 97.8
[2020-12-12] MEDS ORDERED: ORPHENADRINE 30 MG/ML 2 ML VIAL IM STA (09:38)
[2020-12-12] MEDS ORDERED: KETOROLAC 15 MG/ML 1 ML VIAL IM STA (09:38)
[2020-12-12 10:01] LABS: Appearance,Urine Clear (Clear); Bilirubin,Urine Negative (Negative); Blood,Urine Small (Negative); Color,Urine Light Yellow; Glucose,Urine (UA) Negative (Negative); Ketones,Urine Negative (Negative); Leukocyte Esterase,Urine Negative (Negative); Nitrite,Urine Negative (Negative); PH, Urine 5.5 (5.0-8.0); Protein,Urine Negative (Negative); Specific Gravity,Urine 1.011 (1.001-1.035); Urobilinogen,Urine <2.0 mg/dL (<2.0)
[2020-12-12 10:02] LABS: Mucus,Urine Rare /hpf; RBC,Urine 1 /hpf (0-5); Squamous Epithelial Cell,Urine <1 /hpf (0-4); WBC,Urine 1 /hpf (0-5)
--- NOTE | 2020-12-12 10:30 | CT ---
EXAMINATION TYPE: CT lumbar spine wo con DATE OF EXAM: 12/12/2020 10:18 AM COMPARISON: None HISTORY: low back pain, radiating bilaterally to the legs CT DLP: 457.5 mGycm Automated exposure control for dose reduction was used. Unenhanced CT of the lumbar spine was performed. Bone and soft tissue window settings are submitted as well as coronal and sagittal reconstructions. L1-L2: Normal disc space height. No disc herniation protrusion or central stenosis. No facet joint arthropathy. No evidence for foraminal encroachment. L2-L3: Normal disc space height. No disc herniation protrusion or central stenosis. No facet joint arthropathy. No evidence for foraminal encroachment. L3-L4: Normal disc space height. No disc herniation protrusion or central stenosis. No facet joint arthropathy. No evidence for foraminal encroachment. L4-L5: Normal disc space height. Left paracentral disc bulge which may result in left lateral recess stenosis. No gustavo disc herniation. No facet joint arthropathy. No evidence for foraminal encroachme nt. L5-S1: Grade 1 anterolisthesis of L5 on S1 measuring 1 mm. Minimal loss of height of the superior end plate of L5 which appears to be chronic in nature. Normal disc space height. No disc herniation prot rusion or central stenosis. No facet joint arthropathy. No evidence for foraminal encroachment. Superior endplate Schmorl node formation at L1-L2 and L3. IMPRESSION: 1.Left paracentral disc bulge which may result in left lateral recess stenosis. No gustavo disc herniat ion. 2.Grade 1 anterolisthesis of L5 on S1 measuring 1 mm. Minimal loss of height of the superior endplate of L5 which appears to be chronic in nature.
--- NOTE | 2020-12-12 11:40 | ED ---
General Adult HPI - General Chief complaint: Back Pain/Injury Stated complaint: Back pain Time Seen by Provider: 12/12/20 09:31 Source: patient, RN notes reviewed Mode of arrival: ambulatory Limitations: no limitations - History of Present Illness Initial comments: 30-year-old female with a past medical history of asthma and L4-L5 stress fracture presents to the emergency room for back pain. Patient states she was at work when she stepped off a box and felt a sudden pain in her back. States it radiates down both her legs. Denies weakness of the legs with does state her legs gave out once secondary to pain. Denies difficulty ambulating aside from his being painful. Denies bladder or bowel changes. Denies saddle anesthesia.Patient has no other complaints at this time including shortness of breath, chest pain, abdominal pain, nausea or vomiting, headache, or visual changes. - Related Data Previous Rx's Medication Instructions Recorded Cyclobenzaprine [Flexeril] 5 mg PO TID #12 tablet 12/12/20 predniSONE 50 mg PO DAILY #5 tablet 12/12/20 Allergies Allergy/AdvReac Type Severity Reaction Status Date / Time bee venom protein (honey bee) Allergy Severe Anaphylaxis Verified 12/12/20 11:16 Review of Systems ROS Statement: Those systems with pertinent positive or pertinent negative responses have been documented in the HPI. ROS Other: All systems not noted in ROS Statement are negative. Past Medical History Past Medical History: Asthma Additional Past Medical History / Comment(s): hx of L4-L5 fracture History of Any Multi-Drug Resistant Organisms: None Reported Past Surgical History: No Surgical Hx Reported Past Anesthesia/Blood Transfusion Reactions: No Reported Reaction Past Psychological History: Depression Smoking Status: Never smoker Past Alcohol Use History: None Reported Past Drug Use History: None Reported - Past Family History Mother Family Medical History: No Reported History Additional Family Medical History / Comment(s): Grandfather has hx of DM and Cancer Father History Unknown: Yes General Exam Limitations: no limitations General appearance: alert, in no apparent distress Head exam: Present: atraumatic, normocephalic, normal inspection Eye exam: Present: normal appearance, PERRL, EOMI. Absent: scleral icterus, conjunctival injection ENT exam: Present: normal exam, mucous membranes moist Neck exam: Present: normal inspection, full ROM. Absent: tenderness Respiratory exam: Present: normal lung sounds bilaterally. Absent: respiratory distress, wheezes Cardiovascular Exam: Present: regular rate, normal rhythm, normal heart sounds GI/Abdominal exam: Present: soft, normal bowel sounds. Absent: distended, tenderness Extremities exam: Present: normal capillary refill (Capillary refill less than 2 seconds, DP pulses 2+ in bilateral lower extremities.), other (Strength 5 out of 5 in bilateral lower extremities.) Back exam: Present: vertebral tenderness (Mild vertebral tenderness). Absent: full ROM (Patient able to ambulate has about 45 flexion of the lumbar spine. Unable to extend past the neutral position.), CVA tenderness (R), CVA tenderness (L) Neurological exam: Present: alert Course Vital Signs 12/12/20 09:18 Temperature 97.8 F Pulse Rate 76 Respiratory 16 Rate Blood Pressure 102/74 O2 Sat by Pulse 96 Oximetry Medical Decision Making - Medical Decision Making Vitals are stable. HPI physical exam as documented. No bladder or bowel changes, saddle anesthesia, numbness of the legs or weakness of the legs. Patient ambulates to the bathroom on her own without difficulty. Strength is 5 out of 5 in bilateral lower extremities. Sensation is intact. DP pulses 2+. Rectal tone is normal. Patient urinating normally. No evidence for cauda equina symptoms. CT was obtained which shows a left paracentral disc bulge which may result in left lateral recess stenosis. No gustavo disc herniation. There is grade 1 anterior listhesis as well. Patient was given pain medication in significant improvement. Again including normally. I discussed strict return parameters . She will be given orthopedic referral. She'll be started on steroid Tylenol and muscle relaxer. She will return here for any worsening symptoms. I discussed this case with attending Dr. Malik who agrees with this assessment and treatment plan. - Lab Data Lab Results 12/12/20 12/12/20 Range/Units 09:47 09:47 Urine Color Light Yellow Urine Appearance Clear (Clear) Urine pH 5.5 (5.0-8.0) Ur Specific [place] 1.011 (1.001-1.035) Urine Protein Negative (Negative) Urine Glucose (UA) Negative (Negative) Urine Ketones Negative (Negative) Urine Blood Small H (Negative) Urine Nitrite Negative (Negative) Urine Bilirubin Negative (Negative) Urine Urobilinogen <2.0 (<2.0) mg/dL Ur Leukocyte Esterase Negative (Negative) Urine RBC 1 (0-5) /hpf Urine WBC 1 (0-5) /hpf Ur Squamous Epith Cells <1 (0-4) /hpf Urine Mucus Rare H (None) /hpf Urine HCG, Qual Not Detected (Not Detectd) Disposition Clinical Impression: L4-L5 disc bulge Disposition: HOME SELF-CARE Condition: Fair Instructions (If sedation given, give patient instructions): Acute Low Back Pain (ED) Additional Instructions: Please take Tylenol for pain. you may take 1-2 tablets every 6 hours. Take muscle relaxer as directed but do not drive or operate machinery while taking this. Take steroid as directed. You should not take Motrin until you finished steroids. Follow up with orthopedics by calling for an appointment. If you have any worsening symptoms such as worsening pain, bladder or bowel changes, saddle anesthesia, weakness of the legs or fevers you need to return to the emergency room immediately. Prescriptions: Cyclobenzaprine [Flexeril] 5 mg PO TID #12 tablet predniSONE 50 mg PO DAILY #5 tablet Is patient prescribed a controlled substance at d/c from ED?: No Referrals: Nicholas Zamora MD [STAFF PHYSICIAN] - 1-2 days Time of Disposition: 11:38
== END 2020-12-12 11:59 | disposition home or self-care (01) ==
LOC: EC 09:06
DX: M51.26 Other intervertebral disc displacement, lumbar region (principal); Z91.030 Bee allergy status
CPT/HCPCS: 72131; 81001; 81025; 96372; 99284

== ENCOUNTER → 2021-08-06 | Outpatient (CLI) | payer BC | END | disposition home or self-care (01) | LOC: LABWHC1 15:13 | PROVIDERS: ATTEND Family Medicine | DX: Z20.822 Contact with and (suspected) exposure to COVID-19 (principal) | CPT/HCPCS: U0003; C9803; U0005 ==

== ENCOUNTER → 2022-01-21 | Outpatient (CLI) | payer OTHER ==
--- NOTE | 2022-01-21 11:29 | XR ---
Shoulder HISTORY: Trauma and pain, S43.402A 3 views of the left shoulder Bone mineralization, joint spaces are maintained. Question some slight superior displacement of the d istal clavicle in relation to the acromion. Left lung apex as visualized is normal. IMPRESSION: No acute fracture or dislocation of the left shoulder, question AC separation, correlate.
== END | disposition home or self-care (01) ==
LOC: RADXRMAIN 11:08
PROVIDERS: ATTEND Emergency Medicine
DX: S43.402A Unspecified sprain of left shoulder joint, initial encounter (principal); X58.XXXA Exposure to other specified factors, initial encounter

== ENCOUNTER → 2022-09-29 | Outpatient (CLI) | payer BC ==
--- NOTE | 2022-09-29 09:16 | CT ---
EXAMINATION TYPE: CT brain wo con DATE OF EXAM: 09/29/2022 COMPARISON: None HISTORY: Altered mental status, migraine w/o aura CT DLP: 892.1 mGycm. Automated Exposure Control for Dose Reduction was Utilized. TECHNIQUE: CT scan of the head is performed without contrast. FINDINGS: There is no acute intracranial hemorrhage, mass effect, or midline shift identified. The ventricles and sulci are within normal limits in size. The globes are intact and the visualized sin uses are clear. IMPRESSION: No acute intracranial hemorrhage, mass effect, or midline shift is seen.
== END | disposition home or self-care (01) ==
LOC: RADCTMAIN 08:04
PROVIDERS: ATTEND Family Medicine
DX: G44.329 Chronic post-traumatic headache, not intractable (principal); R41.82 Altered mental status, unspecified
CPT/HCPCS: 70450